=== PATIENT | female | born 1970 | race African-American/Black ===

== ENCOUNTER 2023-06-11 21:58 | Inpatient (IN) | payer OTHER ==
[~2023-06-11 21:58] MED LIST: Iopamidol-370 76% 500 ML MDV (1 ML CHARGE) ONE
[2023-06-11 22:20] LABS: #Eosinphils 0.1 thou/uL (0.0-0.7); #Monocytes 0.5 thou/uL (0.11-0.59); #Neutrophils 2.3 thou/uL (1.40-6.50); %Basophils 0.6 % (0.0-1.0); %Monocytes 9.1 % (0.0-10.0); %Neutrophils 42.9 % (42.0-75.0); Hematocrit 38.6 % (36.0-47.0); Hemoglobin 13.3 g/dL (12.0-16.0); Mean Corpuscular HGB CONC 34.5 g/dL (32.0-36.0); Mean Corpuscular Hemoglobin 31.8 pg (27.0-31.0); Mean Corpuscular Volume 92.3 fl (78.0-98.0); Mean Platelet Volume 10.1 fL (7.4-10.4); Platelet Count 309 10x3/uL (130-400); RBC Distribution Width 12.4 % (11.5-14.5); Red Blood Cell (RBC) Count 4.18 mill/uL (4.20-5.40); White Blood Cell (WBC) Count 5.4 10x3/uL (4.8-10.8)
[2023-06-11 22:41] LABS: ALT (SGPT) 13 U/L (8-55); AST (SGOT) 17 U/L (5-34); Albumin 4.5 g/dL (3.5-5.0); Alkaline Phosphatase 91 U/L (40-110); Anion Gap 17 mmol/L (10-20); BUN (Urea Nitrogen) 10 mg/dL (9.8-20.1); Bilirubin, Total Less than 0.2 mg/dL (0.2-1.2); CK (CPK) 334 U/L (29-168); Calc. Creatinine Clearance 0 mL/min (70-130); Calcium 9.3 mg/dL (7.8-10.44); Carbon Dioxide 23 mmol/L (22-29); Chloride 105 mmol/L (98-107); Estimated GFR 79; Globulin 3.1 g/dL (2.4-3.5); Glucose 138 mg/dL (70-105); Potassium 3.5 mmol/L (3.5-5.1); Protein, Total 7.6 g/dL (6.0-8.3); Sodium 141 mmol/L (136-145)
[2023-06-11 22:45] LABS: Troponin I Less than 0.010 ng/mL (< 0.028)
[2023-06-11 22:49] LABS: Prothrombin Time 13.7 sec (12.0-14.7)
[2023-06-12] MEDS ORDERED: Aspirin Chewable 81 MG TAB ONE (00:32)
[2023-06-12] MEDS ORDERED: Dextrose 50% Abboject 50 ML SYRINGE SLOW IVP PRN (00:59)
[2023-06-12] MEDS ORDERED: Dextrose 5% in Water 1,000 ML IV PRN (00:59)
[2023-06-12] MEDS ORDERED: Glucagon 1 MG/ML KIT IM PRN (00:59)
[2023-06-12] MEDS ORDERED: Ondansetron PF 4 MG/2 ML Vial IVP PRN (01:02)
[2023-06-12] MEDS ORDERED: Acetaminophen 325 MG TAB PO PRN (01:02)
[2023-06-12] MEDS ORDERED: Ondansetron ODT 4 MG TAB PO PRN (01:02)
[2023-06-12] MEDS ORDERED: Acetaminophen 650 MG Suppository PR PRN (01:02)
[2023-06-12] MEDS ORDERED: Naloxone HCl 0.4 mg/ml Vial IV SCH (01:15)
[2023-06-12] MEDS ORDERED: Promethazine HCl 12.5 MG in Sodium Chloride 0.9% 50 ML IVPB PRN (01:37)
[2023-06-12 02:06] VITALS: BMI 38.5
[2023-06-12] MEDS: Lactated Ringer's 1,000 ML IV SCH ×2 (02:23→10:13)
[2023-06-12 02:31] LABS: #Eosinphils 0.1 thou/uL (0.0-0.7); #Monocytes 0.4 thou/uL (0.11-0.59); #Neutrophils 2.1 thou/uL (1.40-6.50); %Basophils 0.6 % (0.0-1.0); %Lymphocytes 46.9 % (21.0-51.0); %Monocytes 8.1 % (0.0-10.0); Hematocrit 40.1 % (36.0-47.0); Hemoglobin 13.6 g/dL (12.0-16.0); Mean Corpuscular HGB CONC 33.9 g/dL (32.0-36.0); Mean Corpuscular Hemoglobin 31.6 pg (27.0-31.0); Mean Platelet Volume 10.2 fL (7.4-10.4); Platelet Count 277 10x3/uL (130-400); RBC Distribution Width 12.5 % (11.5-14.5); Red Blood Cell (RBC) Count 4.31 mill/uL (4.20-5.40); White Blood Cell (WBC) Count 4.9 10x3/uL (4.8-10.8)
[2023-06-12 03:02] LABS: Acetaminophen Less than 10 mcg/mL (10.0-30.0); Alcohol Less than 10.0 mg/dL (Less than 10); Salicylate Less than 8.0 mg/dL (15.0-30.0)
[2023-06-12 03:16] LABS: Anion Gap 15 mmol/L (10-20); BUN (Urea Nitrogen) 13 mg/dL (9.8-20.1); Calc. Creatinine Clearance 109 mL/min (70-130); Carbon Dioxide 25 mmol/L (22-29); Chloride 107 mmol/L (98-107); Estimated GFR 82; Glucose 99 mg/dL (70-105); Potassium 3.8 mmol/L (3.5-5.1); Sodium 143 mmol/L (136-145)
[2023-06-12 04:15] LABS: Dilantin 2.9 ug/mL (10.0-20.0)
[2023-06-12 06:41] LABS: Hemoglobin A1c 5.9 % (4.0-6.0)
[2023-06-12] MEDS ORDERED: Phenytoin Extended Release 100 MG CAP PO SCH (09:00)
[2023-06-12] MEDS: Losartan 25 MG TAB PO SCH (10:04)
[2023-06-12] MEDS: metFORMIN 500 MG TAB PO SCH ×2 (10:05→17:22)
[2023-06-12] MEDS: Famotidine 20 MG TAB PO SCH ×2 (10:07→21:23)
[2023-06-12] MEDS: Aspirin Chewable 81 MG TAB PO SCH (10:08)
[2023-06-12 11:19] LABS: Amphetamine Not Detected (NotDetected); Bacteria/HPF None Seen HPF (None Seen); Barbiturates Screen Detected (NotDetected); Benzodiazepine Screen Not Detected (NotDetected); Bilirubin Negative (Negative); Blood, Urine Negative (Negative); CAUTI Indications for Culture Alt mental st,lethar; Clarity Clear (Clear); Cocaine Metabolite Screen Detected (NotDetected); Glucose, Urine (Dipstick) Normal (Negative); Ketone, Urine Negative (Negative); Leukocyte Negative Leu/uL (Negative); Methadone Not Detected (NotDetected); Methamphetamine Not Detected (NotDetected); Nitrite Negative (Negative); Opiate Screen Not Detected (NotDetected); Oxycodone Screen Not Detected (NotDetected); Phencyclidine (PCP) Not Detected (NotDetected); Protein, Urine (Dipstick) Negative (Neg-Trace); RBC/HPF 0-3 HPF (0-3); Squamous Epithelial 0-3 HPF (0-3); THC/Cannabinoid Screen Not Detected (NotDetected); Tricyclic Screen Detected (NotDetected); Urobilinogen Normal mg/dL (Less than 2); WBC/HPF 0-3 HPF (0-3)
[2023-06-12 11:21] LABS: Specific Gravity, Urine 1.044 (1.002-1.036)
[2023-06-12 11:22] LABS: Urine Culture Reflex No No
[2023-06-12] MEDS ORDERED: Fosphenytoin Sodium 100 MG in Sodium Chloride 0.9% 50 ML IVPB SCH (12:00)
[2023-06-12] MEDS ORDERED: Magnevist 469MG/ML 20 ML VIAL ONE (14:22)
[2023-06-12] MEDS: Atorvastatin Calcium 40 MG TAB PO SCH (21:23)
[2023-06-12] MEDS: Fosphenytoin Sodium 100 MG in Sodium Chloride 0.9% 50 ML IVPB SCH (21:23)
[2023-06-13 04:58] LABS: #Eosinphils 0.1 thou/uL (0.0-0.7); #Monocytes 0.4 thou/uL (0.11-0.59); %Basophils 0.5 % (0.0-1.0); %Eosinophils 1.7 % (0.0-10.0); %Lymphocytes 38.4 % (21.0-51.0); %Monocytes 7.7 % (0.0-10.0); %Neutrophils 51.4 % (42.0-75.0); Hematocrit 38.9 % (36.0-47.0); Mean Corpuscular HGB CONC 33.4 g/dL (32.0-36.0); Mean Corpuscular Hemoglobin 31.3 pg (27.0-31.0); Mean Corpuscular Volume 93.7 fl (78.0-98.0); Mean Platelet Volume 10.4 fL (7.4-10.4); Platelet Count 298 10x3/uL (130-400); RBC Distribution Width 12.5 % (11.5-14.5); Red Blood Cell (RBC) Count 4.15 mill/uL (4.20-5.40); White Blood Cell (WBC) Count 5.8 10x3/uL (4.8-10.8)
[2023-06-13 05:21] LABS: Anion Gap 12 mmol/L (10-20); BUN (Urea Nitrogen) 14 mg/dL (9.8-20.1); Calc. Creatinine Clearance 126 mL/min (70-130); Calcium 9.3 mg/dL (7.8-10.44); Carbon Dioxide 26 mmol/L (22-29); Chloride 106 mmol/L (98-107); Estimated GFR 97; Glucose 106 mg/dL (70-105); Potassium 3.8 mmol/L (3.5-5.1); Sodium 140 mmol/L (136-145)
[2023-06-13] MEDS ORDERED: Losartan 25 MG TAB PO SCH (09:00)
[2023-06-13] MEDS: metFORMIN 500 MG TAB PO SCH ×2 (09:27→16:57)
[2023-06-13] MEDS: Aspirin Chewable 81 MG TAB PO SCH (09:27)
[2023-06-13] MEDS: Famotidine 20 MG TAB PO SCH ×2 (09:27→21:05)
[2023-06-13] MEDS: Losartan 25 MG TAB PO SCH (09:27)
[2023-06-13] MEDS: Fosphenytoin Sodium 100 MG in Sodium Chloride 0.9% 50 ML IVPB SCH (09:29)
[2023-06-13 13:22] LABS: Syphilis Antibody Index 16.15 S/CO (<1.00 Non-Reactive)
[2023-06-13 14:03] LABS: Syphilis Antibody INDETERMINATE (Nonreactive)
[2023-06-13] MEDS: Phenytoin 50 MG Chewable Tablet PO SCH ×2 (15:49→21:05)
[2023-06-13] MEDS: Atorvastatin Calcium 40 MG TAB PO SCH (21:05)
[2023-06-14 05:15] LABS: #Eosinphils 0.1 thou/uL (0.0-0.7); #Monocytes 0.5 thou/uL (0.11-0.59); #Neutrophils 3.2 thou/uL (1.40-6.50); %Basophils 0.5 % (0.0-1.0); %Eosinophils 1.9 % (0.0-10.0); %Lymphocytes 38.5 % (21.0-51.0); %Monocytes 8.3 % (0.0-10.0); %Neutrophils 50.5 % (42.0-75.0); Hematocrit 42.1 % (36.0-47.0); Hemoglobin 14.1 g/dL (12.0-16.0); Mean Corpuscular HGB CONC 33.5 g/dL (32.0-36.0); Mean Corpuscular Hemoglobin 31.5 pg (27.0-31.0); Mean Platelet Volume 10.6 fL (7.4-10.4); Platelet Count 317 10x3/uL (130-400); RBC Distribution Width 12.5 % (11.5-14.5); Red Blood Cell (RBC) Count 4.48 mill/uL (4.20-5.40); White Blood Cell (WBC) Count 6.4 10x3/uL (4.8-10.8)
[2023-06-14 06:45] LABS: Anion Gap 14 mmol/L (10-20); BUN (Urea Nitrogen) 13 mg/dL (9.8-20.1); Calc. Creatinine Clearance 139 mL/min (70-130); Calcium 9.8 mg/dL (7.8-10.44); Carbon Dioxide 26 mmol/L (22-29); Chloride 103 mmol/L (98-107); Estimated GFR 105; Glucose 91 mg/dL (70-105); Potassium 3.7 mmol/L (3.5-5.1); Sodium 139 mmol/L (136-145)
[2023-06-14] MEDS ORDERED: Losartan 25 MG TAB PO SCH (09:00)
[2023-06-14] MEDS ORDERED: Venlafaxine HCl XR 75 MG CAP PO SCH (09:00)
[2023-06-14] MEDS: Aspirin Chewable 81 MG TAB PO SCH (09:27)
[2023-06-14] MEDS: metFORMIN 500 MG TAB PO SCH (09:27)
[2023-06-14] MEDS: Famotidine 20 MG TAB PO SCH (09:27)
[2023-06-14] MEDS: Phenytoin 50 MG Chewable Tablet PO SCH (09:27)
[2023-06-14] MEDS ORDERED: Clopidogrel Bisulfate 300 MG TAB PO SCH (12:15)
[2023-06-14 12:19] VITALS: BP 146/79; TEMP 98
== END 2023-06-14 14:00 | disposition home or self-care (01) | DRG 69 ==
LOC: ERS 21:58 → 2SE 23:48 → OBSVTOIN 06-13 12:52
PROVIDERS: ADMIT Student in an Organized Health Care Education/Training Program; ATTEND Student in an Organized Health Care Education/Training Program
DX: G45.9 Transient cerebral ischemic attack, unspecified (principal); G92.8 Other toxic encephalopathy; I10 Essential (primary) hypertension; E78.5 Hyperlipidemia, unspecified; R56.9 Unspecified convulsions; F19.10 Other psychoactive substance abuse, uncomplicated; G30.9 Alzheimer's disease, unspecified; F02.80 Dementia in other diseases classified elsewhere, unspecified severity, without behavioral disturbance, psychotic disturbance, mood disturbance, and anxiety; E11.42 Type 2 diabetes mellitus with diabetic polyneuropathy; J44.9 Chronic obstructive pulmonary disease, unspecified; K21.9 Gastro-esophageal reflux disease without esophagitis; M06.9 Rheumatoid arthritis, unspecified; T40.5X5A Adverse effect of cocaine, initial encounter; F20.9 Schizophrenia, unspecified; R29.898 Other symptoms and signs involving the musculoskeletal system; Z98.891 History of uterine scar from previous surgery; Z88.8 Allergy status to other drugs, medicaments and biological substances; Z79.899 Other long term (current) drug therapy; Z79.82 Long term (current) use of aspirin; Z91.51 Personal history of suicidal behavior; Z80.1 Family history of malignant neoplasm of trachea, bronchus and lung
CPT/HCPCS: 36415; 36416; 70450; 70496; 70498; 70553; 71045; 80048; 80053; 80061; 80185; 80306; 80307; 81001; 82550; 82607; 83036; 84439; 84443; 84484; 85025; 85610; 85730; 86593; 86780; 93005; 96372; 96374; 96375; 96376; A9579; G0378; J1650; J2310; J7120; Q2009; Q9967

== ENCOUNTER 2023-06-30 10:01 | Emergency (ER) | payer OTHER ==
[2023-06-30] MEDS ORDERED: Morphine 4 MG/ML VIAL ONE (11:10)
[2023-06-30 11:37] LABS: #Eosinphils 0.2 thou/uL (0.0-0.7); #Monocytes 0.8 thou/uL (0.11-0.59); #Neutrophils 4.5 thou/uL (1.40-6.50); %Basophils 0.4 % (0.0-1.0); %Neutrophils 60.3 % (42.0-75.0); Hematocrit 38.6 % (36.0-47.0); Hemoglobin 13.1 g/dL (12.0-16.0); Mean Corpuscular HGB CONC 33.9 g/dL (32.0-36.0); Mean Corpuscular Hemoglobin 31.6 pg (27.0-31.0); Mean Corpuscular Volume 93.2 fl (78.0-98.0); Mean Platelet Volume 9.9 fL (7.4-10.4); Platelet Count 337 10x3/uL (130-400); RBC Distribution Width 13.1 % (11.5-14.5); Red Blood Cell (RBC) Count 4.14 mill/uL (4.20-5.40); White Blood Cell (WBC) Count 7.5 10x3/uL (4.8-10.8)
[2023-06-30 11:54] LABS: PTT 28.6 sec (22.9-36.1)
[2023-06-30 12:00] LABS: ALT (SGPT) 16 U/L (8-55); AST (SGOT) 19 U/L (5-34); Albumin 4.4 g/dL (3.5-5.0); Alcohol Less than 10.0 mg/dL (Less than 10); Alkaline Phosphatase 94 U/L (40-110); Anion Gap 16 mmol/L (10-20); BUN (Urea Nitrogen) 16 mg/dL (9.8-20.1); Bilirubin, Total 0.4 mg/dL (0.2-1.2); CK (CPK) 315 U/L (29-168); Calc. Creatinine Clearance 0 mL/min (70-130); Calcium 9.5 mg/dL (7.8-10.44); Carbon Dioxide 22 mmol/L (22-29); Chloride 107 mmol/L (98-107); Estimated GFR 91; Globulin 3.2 g/dL (2.4-3.5); Glucose 101 mg/dL (70-105); Lipase 26 U/L (8-78); Protein, Total 7.6 g/dL (6.0-8.3); Sodium 141 mmol/L (136-145)
[2023-06-30] MEDS ORDERED: Iopamidol-370 76% 500 ML MDV (1 ML CHARGE) ONE (13:09)
== END 2023-06-30 15:50 | disposition home or self-care (01) ==
LOC: ERS 10:01
DX: M25.511 Pain in right shoulder (principal); I10 Essential (primary) hypertension; E11.42 Type 2 diabetes mellitus with diabetic polyneuropathy; K21.9 Gastro-esophageal reflux disease without esophagitis; E78.5 Hyperlipidemia, unspecified; M06.9 Rheumatoid arthritis, unspecified; G40.409 Other generalized epilepsy and epileptic syndromes, not intractable, without status epilepticus; J44.9 Chronic obstructive pulmonary disease, unspecified; W06.XXXA Fall from bed, initial encounter; Y93.89 Activity, other specified; Y92.003 Bedroom of unspecified non-institutional (private) residence as the place of occurrence of the external cause; Z86.73 Personal history of transient ischemic attack (TIA), and cerebral infarction without residual deficits; Z79.84 Long term (current) use of oral hypoglycemic drugs; Z79.899 Other long term (current) drug therapy
CPT/HCPCS: 36415; 70450; 71260; 72125; 74177; 80053; 80307; 82550; 83605; 83690; 85025; 85610; 85730; 93005; 96374; J2270

== ENCOUNTER 2023-08-03 22:22 | Emergency (ER) | payer OTHER ==
[2023-08-03 23:12] LABS: #Eosinphils 0.1 thou/uL (0.0-0.7); #Monocytes 0.9 thou/uL (0.11-0.59); #Neutrophils 3.4 thou/uL (1.40-6.50); %Basophils 0.3 % (0.0-1.0); %Lymphocytes 36.2 % (21.0-51.0); %Monocytes 12.5 % (0.0-10.0); %Neutrophils 49.6 % (42.0-75.0); Hematocrit 37.8 % (36.0-47.0); Hemoglobin 12.8 g/dL (12.0-16.0); Mean Corpuscular HGB CONC 33.9 g/dL (32.0-36.0); Mean Corpuscular Hemoglobin 32.1 pg (27.0-31.0); Mean Corpuscular Volume 94.7 fl (78.0-98.0); Mean Platelet Volume 9.7 fL (7.4-10.4); Platelet Count 409 10x3/uL (130-400); RBC Distribution Width 13.6 % (11.5-14.5); Red Blood Cell (RBC) Count 3.99 mill/uL (4.20-5.40); White Blood Cell (WBC) Count 6.9 10x3/uL (4.8-10.8)
[2023-08-03 23:27] LABS: Acetaminophen Less than 10 mcg/mL (10.0-30.0); Alcohol Less than 10.0 mg/dL (Less than 10); Salicylate Less than 8.0 mg/dL (15.0-30.0)
[2023-08-03 23:29] LABS: ALT (SGPT) 11 U/L (8-55); AST (SGOT) 14 U/L (5-34); Albumin 3.9 g/dL (3.5-5.0); Alkaline Phosphatase 88 U/L (40-110); Anion Gap 15 mmol/L (10-20); BUN (Urea Nitrogen) 14 mg/dL (9.8-20.1); Bilirubin, Total 0.2 mg/dL (0.2-1.2); Calc. Creatinine Clearance 0 mL/min (70-130); Calcium 8.9 mg/dL (7.8-10.44); Carbon Dioxide 22 mmol/L (22-29); Chloride 109 mmol/L (98-107); Estimated GFR 101; Globulin 3.2 g/dL (2.4-3.5); Glucose 97 mg/dL (70-105); Potassium 3.5 mmol/L (3.5-5.1); Protein, Total 7.1 g/dL (6.0-8.3); Sodium 142 mmol/L (136-145)
[2023-08-03] MEDS ORDERED: Acetaminophen 325 MG TAB ONE (23:54)
[2023-08-03] MEDS ORDERED: Phenytoin Extended Release 100 MG CAP ONE (23:55)
[2023-08-04 00:05] LABS: SARS-CoV-2 NAA Rapid Test Not Detected (NotDetected)
[2023-08-04] MEDS ORDERED: Dextromethorphan 30 MG/5 ML (89 ML BOTTLE) PO SCH (00:15)
[2023-08-04 00:31] LABS: Amphetamine Not Detected (NotDetected); Barbiturates Screen Not Detected (NotDetected); Benzodiazepine Screen Not Detected (NotDetected); Cocaine Metabolite Screen Detected (NotDetected); Methadone Not Detected (NotDetected); Methamphetamine Not Detected (NotDetected); Opiate Screen Not Detected (NotDetected); Oxycodone Screen Not Detected (NotDetected); Phencyclidine (PCP) Not Detected (NotDetected); THC/Cannabinoid Screen Detected (NotDetected); Tricyclic Screen Not Detected (NotDetected)
== END 2023-08-04 01:30 | disposition home or self-care (01) ==
LOC: ERS 22:22
DX: J01.80 Other acute sinusitis (principal); R56.9 Unspecified convulsions; I10 Essential (primary) hypertension; E11.9 Type 2 diabetes mellitus without complications; K21.9 Gastro-esophageal reflux disease without esophagitis; E78.5 Hyperlipidemia, unspecified; Z79.84 Long term (current) use of oral hypoglycemic drugs; Z79.899 Other long term (current) drug therapy; Z20.822 Contact with and (suspected) exposure to COVID-19
CPT/HCPCS: 36415; 70450; 71045; 80053; 80306; 80307; 85025; 93005; Q2009

== ENCOUNTER 2023-08-15 02:21 | Inpatient (IN) | payer OTHER ==
[2023-08-15 02:56] LABS: #Eosinphils 0.1 thou/uL (0.0-0.7); #Monocytes 0.5 thou/uL (0.11-0.59); #Neutrophils 5.1 thou/uL (1.40-6.50); %Basophils 0.4 % (0.0-1.0); %Eosinophils 1.1 % (0.0-10.0); %Lymphocytes 29.2 % (21.0-51.0); %Monocytes 5.9 % (0.0-10.0); Hematocrit 41.7 % (36.0-47.0); Hemoglobin 14.3 g/dL (12.0-16.0); Mean Corpuscular HGB CONC 34.3 g/dL (32.0-36.0); Mean Corpuscular Hemoglobin 31.8 pg (27.0-31.0); Mean Corpuscular Volume 92.9 fl (78.0-98.0); Mean Platelet Volume 10.5 fL (7.4-10.4); Platelet Count 394 10x3/uL (130-400); RBC Distribution Width 14.1 % (11.5-14.5); Red Blood Cell (RBC) Count 4.49 mill/uL (4.20-5.40); White Blood Cell (WBC) Count 8.1 10x3/uL (4.8-10.8)
[2023-08-15 03:24] LABS: PTT 37.3 sec (22.9-36.1); Prothrombin Time 13.1 sec (12.0-14.7)
[2023-08-15 03:45] LABS: Troponin I Less than 0.010 ng/mL (< 0.028)
[2023-08-15 04:13] LABS: Chloride 107 mmol/L (98-107); Potassium 4.4 mmol/L (3.5-5.1); Sodium 138 mmol/L (136-145)
[2023-08-15 04:14] LABS: Calcium 9.8 mg/dL (7.8-10.44); Glucose 98 mg/dL (70-105)
[2023-08-15 04:15] LABS: Globulin 4.3 g/dL (2.4-3.5); Protein, Total 8.3 g/dL (6.0-8.3)
[2023-08-15 04:16] LABS: Anion Gap 23 mmol/L (10-20); Bilirubin, Total 0.3 mg/dL (0.2-1.2); Carbon Dioxide 12 mmol/L (22-29)
[2023-08-15 04:17] LABS: Alkaline Phosphatase 82 U/L (40-110)
[2023-08-15 04:18] LABS: BUN (Urea Nitrogen) 10 mg/dL (9.8-20.1); Calc. Creatinine Clearance 0 mL/min (70-130); Estimated GFR 102
[2023-08-15 04:20] LABS: ALT (SGPT) 13 U/L (8-55); AST (SGOT) 22 U/L (5-34); Magnesium 2.1 mg/dL (1.6-2.6)
[2023-08-15 04:47] LABS: Acetaminophen Less than 10 mcg/mL (10.0-30.0); Alcohol 18.8 mg/dL (Less than 10); Salicylate Less than 8.0 mg/dL (15.0-30.0)
[2023-08-15 05:03] LABS: SARS-CoV-2 NAA Rapid Test Not Detected (NotDetected)
[2023-08-15 07:26] LABS: Troponin I Less than 0.010 ng/mL (< 0.028)
[2023-08-15] MEDS ORDERED: Glucagon 1 MG/ML KIT IM PRN (08:11)
[2023-08-15] MEDS ORDERED: Dextrose 50% Abboject 50 ML SYRINGE SLOW IVP PRN (08:11)
[2023-08-15] MEDS ORDERED: Dextrose 5% in Water 1,000 ML IV PRN (08:11)
[2023-08-15] MEDS ORDERED: Acetaminophen 325 MG TAB PO PRN (08:12)
[2023-08-15] MEDS ORDERED: HumaLOG 300 UNITS/3 ML VIAL SC PRN ×2 (08:12)
[2023-08-15 08:15] VITALS: BMI 37.1
[2023-08-15] MEDS ORDERED: hydrALAZINE 20 MG/ML VIAL SLOW IVP PRN (08:39)
[2023-08-15] MEDS ORDERED: Losartan 25 MG TAB PO SCH (08:45)
[2023-08-15] MEDS ORDERED: Ketorolac Tromethamine 30 MG/ML VIAL IVP SCH (08:45)
[2023-08-15] MEDS ORDERED: Phenytoin Extended Release 100 MG CAP PO SCH (09:15)
[2023-08-15] MEDS ORDERED: Albuterol HFA (OR) 200 PUFF INH INH PRN (09:25)
[2023-08-15] MEDS: Lidocaine 4% Patch TD SCH (10:16)
[2023-08-15] MEDS ORDERED: Iopamidol-370 76% 500 ML MDV (1 ML CHARGE) ONE (10:46)
[2023-08-15 10:58] LABS: Hemoglobin A1c 6.1 % (4.0-6.0)
[2023-08-15 11:36] LABS: Thyroid Stimulating Hormone 0.3578 uIU/mL (0.35-4.94)
[2023-08-15] MEDS ORDERED: FLU VACC QS2023-24(6MOS UP)/PF 60 MCG/0.5 ML SYRINGE IM ONE (15:30)
[2023-08-15] MEDS ORDERED: Melatonin 3 MG TAB PO PRN (17:12)
[2023-08-15] MEDS: Gabapentin 300 MG CAP PO SCH ×2 (17:31→17:32)
[2023-08-15] MEDS: Phenytoin Extended Release 100 MG CAP PO SCH ×2 (17:33→20:05)
[2023-08-15] MEDS: metFORMIN 500 MG TAB PO SCH (17:34)
[2023-08-15] MEDS: Famotidine 20 MG TAB PO SCH (20:05)
[2023-08-15] MEDS ORDERED: Transdermal Patch Removal TOP SCH (21:00)
[2023-08-15] MEDS ORDERED: Atorvastatin Calcium 40 MG TAB PO SCH (21:00)
[2023-08-15] MEDS ORDERED: traZODone HCl 50 MG TAB PO SCH (21:00)
[2023-08-16 06:02] LABS: Hematocrit 43.3 % (36.0-47.0); Hemoglobin 14.4 g/dL (12.0-16.0); Mean Corpuscular HGB CONC 33.3 g/dL (32.0-36.0); Mean Corpuscular Hemoglobin 32.1 pg (27.0-31.0); Mean Corpuscular Volume 96.7 fl (78.0-98.0); Mean Platelet Volume 10.4 fL (7.4-10.4); Platelet Count 317 10x3/uL (130-400); RBC Distribution Width 14.6 % (11.5-14.5); Red Blood Cell (RBC) Count 4.48 mill/uL (4.20-5.40); White Blood Cell (WBC) Count 5.1 10x3/uL (4.8-10.8)
[2023-08-16 06:36] LABS: Anion Gap 12 mmol/L (10-20); BUN (Urea Nitrogen) 23 mg/dL (9.8-20.1); Calc. Creatinine Clearance 132 mL/min (70-130); Carbon Dioxide 21 mmol/L (22-29); Cardiac Risk 3.8 (Less than 4.5); Chloride 109 mmol/L (98-107); Cholesterol 188 mg/dl (< 200 Desired); Estimated GFR 105; Glucose 110 mg/dL (70-105); HDL Cholesterol 49 mg/dL (>60 Neg Risk); LDL Cholesterol, Calculated 116 mg/dL; Potassium 4.2 mmol/L (3.5-5.1); Sodium 138 mmol/L (136-145); Triglycerides 115 mg/dL (Less than 150)
[2023-08-16] MEDS ORDERED: Aspirin Chewable 81 MG TAB PO SCH (09:00)
[2023-08-16] MEDS ORDERED: Losartan 25 MG TAB PO SCH (09:00)
[2023-08-16] MEDS ORDERED: Clopidogrel Bisulfate 75 MG TAB PO SCH (09:00)
[2023-08-16] MEDS ORDERED: OLANZapine 5 MG TAB PO SCH ×2 (09:00→21:00)
[2023-08-16] MEDS ORDERED: Venlafaxine HCl XR 75 MG CAP PO SCH (09:00)
[2023-08-16] MEDS: Lidocaine 4% Patch TD SCH (09:11)
[2023-08-16] MEDS: Phenytoin Extended Release 100 MG CAP PO SCH ×2 (09:12→15:43)
[2023-08-16] MEDS: metFORMIN 500 MG TAB PO SCH (09:13)
[2023-08-16] MEDS: Gabapentin 300 MG CAP PO SCH ×2 (09:13→15:43)
[2023-08-16] MEDS: Famotidine 20 MG TAB PO SCH (09:13)
[2023-08-16 12:31] VITALS: BP 110/70; TEMP 98.1
== END 2023-08-16 16:16 | disposition home or self-care (01) | DRG 57 ==
LOC: ERS 02:21 → 2SW 08:03 → T4-B 21:52
PROVIDERS: ADMIT Family Medicine; ATTEND Family Medicine
PROC: 02H633Z Insertion of Infusion Device into Right Atrium, Percutaneous Approach (ICD-10-PCS; principal; 2023-08-15)
DX: I69.354 Hemiplegia and hemiparesis following cerebral infarction affecting left non-dominant side (principal); F10.90 Alcohol use, unspecified, uncomplicated; E11.40 Type 2 diabetes mellitus with diabetic neuropathy, unspecified; E78.5 Hyperlipidemia, unspecified; I11.0 Hypertensive heart disease with heart failure; R26.81 Unsteadiness on feet; M19.012 Primary osteoarthritis, left shoulder; R91.8 Other nonspecific abnormal finding of lung field; F19.10 Other psychoactive substance abuse, uncomplicated; F41.9 Anxiety disorder, unspecified; T14.91XD Suicide attempt, subsequent encounter; F31.9 Bipolar disorder, unspecified; F20.9 Schizophrenia, unspecified; Z79.82 Long term (current) use of aspirin; Z88.8 Allergy status to other drugs, medicaments and biological substances; Z79.899 Other long term (current) drug therapy; Z98.891 History of uterine scar from previous surgery; Z71.51 Drug abuse counseling and surveillance of drug abuser; Z82.49 Family history of ischemic heart disease and other diseases of the circulatory system; Z83.3 Family history of diabetes mellitus; Z80.1 Family history of malignant neoplasm of trachea, bronchus and lung; Z11.52 Encounter for screening for COVID-19
CPT/HCPCS: 36415; 36416; 70450; 70496; 70498; 71045; 80048; 80053; 80061; 80307; 82607; 83036; 83735; 83880; 84443; 84484; 85025; 85027; 85610; 85730; 93005; J1650; J1885; Q9967

== ENCOUNTER 2023-09-07 15:47 | Emergency (ER) | payer OTHER ==
[2023-09-07 16:44] LABS: #Basophils 0.1 thou/uL (0.0-0.2); #Eosinphils 0.1 thou/uL (0.0-0.7); #Monocytes 0.9 thou/uL (0.11-0.59); #Neutrophils 5.4 thou/uL (1.40-6.50); %Basophils 0.6 % (0.0-1.0); %Eosinophils 0.9 % (0.0-10.0); %Lymphocytes 28.6 % (21.0-51.0); %Monocytes 9.5 % (0.0-10.0); %Neutrophils 60.1 % (42.0-75.0); Hematocrit 44.1 % (36.0-47.0); Mean Corpuscular Hemoglobin 32.4 pg (27.0-31.0); Mean Corpuscular Volume 95.2 fl (78.0-98.0); Mean Platelet Volume 10.5 fL (7.4-10.4); Platelet Count 334 10x3/uL (130-400); RBC Distribution Width 14.3 % (11.5-14.5); Red Blood Cell (RBC) Count 4.63 mill/uL (4.20-5.40); White Blood Cell (WBC) Count 8.9 10x3/uL (4.8-10.8)
[2023-09-07 17:09] LABS: Chloride 108 mmol/L (98-107); Potassium 4.4 mmol/L (3.5-5.1); Sodium 138 mmol/L (136-145)
[2023-09-07 17:18] LABS: Alcohol Less than 10.0 mg/dL (Less than 10)
[2023-09-07 17:21] LABS: Acetaminophen Less than 10 mcg/mL (10.0-30.0); Salicylate Less than 8.0 mg/dL (15.0-30.0)
[2023-09-07 17:22] LABS: ALT (SGPT) 15 U/L (8-55); AST (SGOT) 27 U/L (5-34); Albumin 4.8 g/dL (3.5-5.0); Alkaline Phosphatase 94 U/L (40-110); Anion Gap 21 mmol/L (10-20); BUN (Urea Nitrogen) 17 mg/dL (9.8-20.1); Bilirubin, Total 0.4 mg/dL (0.2-1.2); Calc. Creatinine Clearance 0 mL/min (70-130); Calcium 9.3 mg/dL (7.8-10.44); Carbon Dioxide 14 mmol/L (22-29); Estimated GFR 88; Globulin 3.9 g/dL (2.4-3.5); Glucose 102 mg/dL (70-105); Protein, Total 8.7 g/dL (6.0-8.3)
[2023-09-07 17:26] LABS: Troponin I Less than 0.010 ng/mL (< 0.028)
[2023-09-07 18:11] LABS: Bacteria/HPF None Seen HPF (None Seen); Bilirubin Negative (Negative); Blood, Urine Negative (Negative); CAUTI Indications for Culture Alt mental st,lethar; Clarity Clear (Clear); Glucose, Urine (Dipstick) Normal (Negative); Ketone, Urine Negative (Negative); Leukocyte Negative Leu/uL (Negative); Nitrite Negative (Negative); Protein, Urine (Dipstick) 20 mg/dL (Neg-Trace); RBC/HPF 0-3 HPF (0-3); Specific Gravity, Urine 1.033 (1.002-1.036); Squamous Epithelial 0-3 HPF (0-3); WBC/HPF 0-3 HPF (0-3); pH, Urine 5.5 (5.0-9.0)
[2023-09-07 18:14] LABS: Urine Culture Reflex No No
[2023-09-07 18:23] LABS: Amphetamine Not Detected (NotDetected); Barbiturates Screen Detected (NotDetected); Benzodiazepine Screen Not Detected (NotDetected); Cocaine Metabolite Screen Detected (NotDetected); Methadone Not Detected (NotDetected); Methamphetamine Not Detected (NotDetected); Opiate Screen Not Detected (NotDetected); Oxycodone Screen Not Detected (NotDetected); Phencyclidine (PCP) Not Detected (NotDetected); THC/Cannabinoid Screen Detected (NotDetected); Tricyclic Screen Detected (NotDetected)
== END 2023-09-07 19:20 | disposition home or self-care (01) ==
LOC: ERS 15:47
DX: M54.50 Low back pain, unspecified (principal); E11.9 Type 2 diabetes mellitus without complications; K21.9 Gastro-esophageal reflux disease without esophagitis; E78.5 Hyperlipidemia, unspecified; E11.42 Type 2 diabetes mellitus with diabetic polyneuropathy; I10 Essential (primary) hypertension; J44.9 Chronic obstructive pulmonary disease, unspecified; Z79.84 Long term (current) use of oral hypoglycemic drugs; Z79.51 Long term (current) use of inhaled steroids; Z79.899 Other long term (current) drug therapy; W19.XXXA Unspecified fall, initial encounter
CPT/HCPCS: 36416; 51701; 72128; 72131; 80053; 80306; 80307; 81001; 83735; 84484; 85025; 93005; 94760

== ENCOUNTER 2023-09-14 19:34 | Inpatient (IN) | payer OTHER ==
[2023-09-14 20:22] LABS: #Eosinphils 0.1 thou/uL (0.0-0.7); #Monocytes 0.6 thou/uL (0.11-0.59); #Neutrophils 4.2 thou/uL (1.40-6.50); %Basophils 0.4 % (0.0-1.0); %Eosinophils 1.7 % (0.0-10.0); %Lymphocytes 30.1 % (21.0-51.0); %Monocytes 8.2 % (0.0-10.0); %Neutrophils 59.2 % (42.0-75.0); Hematocrit 37.6 % (36.0-47.0); Hemoglobin 12.8 g/dL (12.0-16.0); Mean Corpuscular Hemoglobin 32.3 pg (27.0-31.0); Mean Corpuscular Volume 94.9 fl (78.0-98.0); Platelet Count 353 10x3/uL (130-400); RBC Distribution Width 13.7 % (11.5-14.5); Red Blood Cell (RBC) Count 3.96 mill/uL (4.20-5.40); White Blood Cell (WBC) Count 7.1 10x3/uL (4.8-10.8)
[2023-09-14 20:36] LABS: PTT 27.8 sec (22.9-36.1); Prothrombin Time 13.5 sec (12.0-14.7)
[2023-09-14 20:42] LABS: Troponin I Less than 0.010 ng/mL (< 0.028)
[2023-09-14 20:48] LABS: ALT (SGPT) 11 U/L (8-55); AST (SGOT) 15 U/L (5-34); Albumin 4.2 g/dL (3.5-5.0); Alkaline Phosphatase 83 U/L (40-110); Anion Gap 14 mmol/L (10-20); BUN (Urea Nitrogen) 17 mg/dL (9.8-20.1); Bilirubin, Total 0.3 mg/dL (0.2-1.2); Calc. Creatinine Clearance 0 mL/min (70-130); Calcium 9.6 mg/dL (7.8-10.44); Carbon Dioxide 25 mmol/L (22-29); Chloride 105 mmol/L (98-107); Estimated GFR 88; Globulin 3.5 g/dL (2.4-3.5); Glucose 136 mg/dL (70-105); Potassium 3.2 mmol/L (3.5-5.1); Protein, Total 7.7 g/dL (6.0-8.3); Sodium 141 mmol/L (136-145)
[2023-09-14 20:49] LABS: Acetaminophen Less than 10 mcg/mL (10.0-30.0); Alcohol Less than 10.0 mg/dL (Less than 10); Lipase 41 U/L (8-78); Salicylate Less than 8.0 mg/dL (15.0-30.0)
[2023-09-14] MEDS ORDERED: Aspirin Chewable 81 MG TAB ONE (21:18)
[2023-09-14 21:39] LABS: Bacteria/HPF None Seen HPF (None Seen); Bilirubin Negative (Negative); Blood, Urine Negative (Negative); CAUTI Indications for Culture Alt mental st,lethar; Clarity Clear (Clear); Glucose, Urine (Dipstick) Normal (Negative); Ketone, Urine Negative (Negative); Leukocyte Negative Leu/uL (Negative); Nitrite Negative (Negative); Protein, Urine (Dipstick) Negative (Neg-Trace); RBC/HPF 0-3 HPF (0-3); Specific Gravity, Urine 1.045 (1.002-1.036); Squamous Epithelial 0-3 HPF (0-3); Urobilinogen Normal mg/dL (Less than 2); WBC/HPF 0-3 HPF (0-3); pH, Urine 6.5 (5.0-9.0)
[2023-09-14 21:41] LABS: Amphetamine Not Detected (NotDetected); Barbiturates Screen Detected (NotDetected); Benzodiazepine Screen Not Detected (NotDetected); Cocaine Metabolite Screen Detected (NotDetected); Methadone Not Detected (NotDetected); Methamphetamine Not Detected (NotDetected); Opiate Screen Not Detected (NotDetected); Oxycodone Screen Not Detected (NotDetected); Phencyclidine (PCP) Not Detected (NotDetected); THC/Cannabinoid Screen Not Detected (NotDetected); Tricyclic Screen Not Detected (NotDetected)
[2023-09-14 21:43] LABS: Urine Culture Reflex No No
[2023-09-14] MEDS ORDERED: Dextrose 50% Abboject 50 ML SYRINGE SLOW IVP PRN (22:11)
[2023-09-14] MEDS ORDERED: Acetaminophen 325 MG TAB PO PRN (22:11)
[2023-09-14] MEDS ORDERED: Ondansetron ODT 4 MG TAB PO PRN (22:11)
[2023-09-14] MEDS ORDERED: Dextrose 5% in Water 1,000 ML IV PRN (22:11)
[2023-09-14] MEDS ORDERED: Glucagon 1 MG/ML KIT IM PRN (22:11)
[2023-09-14] MEDS ORDERED: HumaLOG 300 UNITS/3 ML VIAL SC PRN ×2 (22:15)
[2023-09-14] MEDS ORDERED: Nicotine 14 MG PATCH ONE (23:11)
[2023-09-14] MEDS: Nicotine 14 MG PATCH TD SCH (23:50)
[2023-09-15] MEDS ORDERED: Albuterol 200 PUFF (6.7GM INHALER) INH PRN (01:00)
[2023-09-15] MEDS ORDERED: Potassium Chloride 20 MEQ TAB PO SCH (01:30)
[2023-09-15 01:55] LABS: Cardiac Risk 3.1 (Less than 4.5)
[2023-09-15] MEDS ORDERED: Potassium Chloride 20 MEQ TAB ONE (03:03)
[2023-09-15 04:02] LABS: #Eosinphils 0.1 thou/uL (0.0-0.7); #Monocytes 0.6 thou/uL (0.11-0.59); #Neutrophils 2.9 thou/uL (1.40-6.50); %Basophils 0.3 % (0.0-1.0); %Eosinophils 1.9 % (0.0-10.0); %Monocytes 9.8 % (0.0-10.0); %Neutrophils 49.7 % (42.0-75.0); Hematocrit 38.6 % (36.0-47.0); Mean Corpuscular HGB CONC 33.7 g/dL (32.0-36.0); Mean Corpuscular Hemoglobin 31.9 pg (27.0-31.0); Mean Corpuscular Volume 94.6 fl (78.0-98.0); Mean Platelet Volume 10.1 fL (7.4-10.4); Platelet Count 318 10x3/uL (130-400); RBC Distribution Width 13.7 % (11.5-14.5); Red Blood Cell (RBC) Count 4.08 mill/uL (4.20-5.40); White Blood Cell (WBC) Count 5.8 10x3/uL (4.8-10.8)
[2023-09-15 04:57] LABS: ALT (SGPT) 8 U/L (8-55); AST (SGOT) 13 U/L (5-34); Albumin 3.8 g/dL (3.5-5.0); Alkaline Phosphatase 75 U/L (40-110); Anion Gap 12 mmol/L (10-20); BUN (Urea Nitrogen) 18 mg/dL (9.8-20.1); Bilirubin, Total 0.3 mg/dL (0.2-1.2); Calc. Creatinine Clearance 119 mL/min (70-130); Calcium 9.1 mg/dL (7.8-10.44); Carbon Dioxide 25 mmol/L (22-29); Chloride 107 mmol/L (98-107); Estimated GFR 95; Glucose 97 mg/dL (70-105); Potassium 3.6 mmol/L (3.5-5.1); Protein, Total 6.8 g/dL (6.0-8.3); Sodium 140 mmol/L (136-145)
[2023-09-15] MEDS ORDERED: Aspirin Chewable 81 MG TAB ONE (08:53)
[2023-09-15] MEDS ORDERED: Famotidine 20 MG TAB ONE (08:53)
[2023-09-15] MEDS ORDERED: Clopidogrel Bisulfate 75 MG TAB ONE (08:53)
[2023-09-15] MEDS ORDERED: Phenytoin Extended Release 100 MG CAP ONE (08:53)
[2023-09-15] MEDS ORDERED: Gabapentin 300 MG CAP ONE (08:53)
[2023-09-15] MEDS ORDERED: Enoxaparin 40 MG (0.4 mL) SYRINGE ONE (08:54)
[2023-09-15] MEDS: Enoxaparin 40 MG (0.4 mL) SYRINGE SC SCH (09:18)
[2023-09-15] MEDS: Famotidine 20 MG TAB PO SCH ×2 (09:19→20:58)
[2023-09-15] MEDS: Aspirin Chewable 81 MG TAB PO SCH (09:19)
[2023-09-15] MEDS: Gabapentin 300 MG CAP PO SCH ×3 (09:19→20:57)
[2023-09-15] MEDS: Clopidogrel Bisulfate 75 MG TAB PO SCH (09:19)
[2023-09-15] MEDS: Phenytoin Extended Release 100 MG CAP PO SCH ×3 (09:20→20:57)
[2023-09-15] MEDS: metFORMIN 500 MG TAB PO SCH ×2 (09:44→17:33)
[2023-09-15] MEDS: Venlafaxine HCl XR 75 MG CAP PO SCH (09:44)
[2023-09-15 16:52] VITALS: BMI 34.9
[2023-09-15] MEDS: traZODone HCl 50 MG TAB PO SCH (20:57)
[2023-09-15] MEDS: Nicotine 14 MG PATCH TD SCH (20:57)
[2023-09-15] MEDS: OLANZapine 5 MG TAB PO SCH (20:58)
[2023-09-15] MEDS: Atorvastatin Calcium 40 MG TAB PO SCH (20:58)
[2023-09-16] MEDS: Enoxaparin 40 MG (0.4 mL) SYRINGE SC SCH (08:27)
[2023-09-16] MEDS: Famotidine 20 MG TAB PO SCH ×2 (08:27→21:34)
[2023-09-16] MEDS: Phenytoin Extended Release 100 MG CAP PO SCH ×3 (08:28→21:34)
[2023-09-16] MEDS: metFORMIN 500 MG TAB PO SCH ×2 (08:28→16:50)
[2023-09-16] MEDS: Clopidogrel Bisulfate 75 MG TAB PO SCH (08:28)
[2023-09-16] MEDS: Venlafaxine HCl XR 75 MG CAP PO SCH (08:28)
[2023-09-16] MEDS: Gabapentin 300 MG CAP PO SCH ×3 (08:28→21:34)
[2023-09-16] MEDS: Aspirin Chewable 81 MG TAB PO SCH (08:28)
[2023-09-16 11:23] LABS: #Eosinphils 0.1 thou/uL (0.0-0.7); #Monocytes 0.4 thou/uL (0.11-0.59); #Neutrophils 2.8 thou/uL (1.40-6.50); %Basophils 0.4 % (0.0-1.0); %Eosinophils 2.3 % (0.0-10.0); %Lymphocytes 29.7 % (21.0-51.0); %Monocytes 9.1 % (0.0-10.0); %Neutrophils 58.1 % (42.0-75.0); Hematocrit 39.5 % (36.0-47.0); Hemoglobin 13.2 g/dL (12.0-16.0); Mean Corpuscular HGB CONC 33.4 g/dL (32.0-36.0); Mean Corpuscular Hemoglobin 32.4 pg (27.0-31.0); Mean Corpuscular Volume 96.8 fl (78.0-98.0); Mean Platelet Volume 10.2 fL (7.4-10.4); Platelet Count 326 10x3/uL (130-400); RBC Distribution Width 13.7 % (11.5-14.5); Red Blood Cell (RBC) Count 4.08 mill/uL (4.20-5.40); White Blood Cell (WBC) Count 4.7 10x3/uL (4.8-10.8)
[2023-09-16 11:43] LABS: ALT (SGPT) 11 U/L (8-55); AST (SGOT) 12 U/L (5-34); Albumin 3.9 g/dL (3.5-5.0); Alkaline Phosphatase 75 U/L (40-110); Anion Gap 13 mmol/L (10-20); BUN (Urea Nitrogen) 13 mg/dL (9.8-20.1); Bilirubin, Total 0.3 mg/dL (0.2-1.2); Calc. Creatinine Clearance 121 mL/min (70-130); Calcium 9.2 mg/dL (7.8-10.44); Carbon Dioxide 19 mmol/L (22-29); Chloride 108 mmol/L (98-107); Estimated GFR 102; Globulin 3.2 g/dL (2.4-3.5); Glucose 153 mg/dL (70-105); Potassium 4.1 mmol/L (3.5-5.1); Protein, Total 7.1 g/dL (6.0-8.3); Sodium 136 mmol/L (136-145)
[2023-09-16] MEDS: Atorvastatin Calcium 40 MG TAB PO SCH (21:33)
[2023-09-16] MEDS: traZODone HCl 50 MG TAB PO SCH (21:34)
[2023-09-16] MEDS: OLANZapine 5 MG TAB PO SCH (21:35)
[2023-09-16] MEDS: Nicotine 14 MG PATCH TD SCH (21:35)
[2023-09-17] MEDS: Gabapentin 300 MG CAP PO SCH ×3 (10:13→20:32)
[2023-09-17] MEDS: Famotidine 20 MG TAB PO SCH ×2 (10:13→20:32)
[2023-09-17] MEDS: Aspirin Chewable 81 MG TAB PO SCH (10:14)
[2023-09-17] MEDS: Phenytoin Extended Release 100 MG CAP PO SCH ×3 (10:14→20:31)
[2023-09-17] MEDS: metFORMIN 500 MG TAB PO SCH ×2 (10:15→18:01)
[2023-09-17] MEDS: Venlafaxine HCl XR 75 MG CAP PO SCH (10:15)
[2023-09-17] MEDS: Enoxaparin 40 MG (0.4 mL) SYRINGE SC SCH (10:15)
[2023-09-17] MEDS: Clopidogrel Bisulfate 75 MG TAB PO SCH (10:15)
[2023-09-17] MEDS ORDERED: Magnevist 469MG/ML 20 ML VIAL ONE (11:28)
[2023-09-17] MEDS ORDERED: Lorazepam 0.5 MG TAB PO SCH (13:45)
[2023-09-17 18:18] LABS: #Eosinphils 0.1 thou/uL (0.0-0.7); #Monocytes 0.6 thou/uL (0.11-0.59); #Neutrophils 3.9 thou/uL (1.40-6.50); %Basophils 0.6 % (0.0-1.0); %Eosinophils 1.8 % (0.0-10.0); %Lymphocytes 29.8 % (21.0-51.0); %Monocytes 9.5 % (0.0-10.0); Hematocrit 43.1 % (36.0-47.0); Mean Corpuscular HGB CONC 32.5 g/dL (32.0-36.0); Mean Corpuscular Hemoglobin 31.7 pg (27.0-31.0); Mean Corpuscular Volume 97.5 fl (78.0-98.0); Mean Platelet Volume 9.8 fL (7.4-10.4); Platelet Count 373 10x3/uL (130-400); RBC Distribution Width 13.8 % (11.5-14.5); Red Blood Cell (RBC) Count 4.42 mill/uL (4.20-5.40); White Blood Cell (WBC) Count 6.7 10x3/uL (4.8-10.8)
[2023-09-17 18:42] LABS: ALT (SGPT) 9 U/L (8-55); AST (SGOT) 12 U/L (5-34); Albumin 4.1 g/dL (3.5-5.0); Alkaline Phosphatase 82 U/L (40-110); Anion Gap 15 mmol/L (10-20); BUN (Urea Nitrogen) 19 mg/dL (9.8-20.1); Bilirubin, Total 0.2 mg/dL (0.2-1.2); Calc. Creatinine Clearance 108 mL/min (70-130); Calcium 9.5 mg/dL (7.8-10.44); Carbon Dioxide 22 mmol/L (22-29); Chloride 105 mmol/L (98-107); Estimated GFR 88; Globulin 3.7 g/dL (2.4-3.5); Glucose 125 mg/dL (70-105); Potassium 4.1 mmol/L (3.5-5.1); Protein, Total 7.8 g/dL (6.0-8.3); Sodium 138 mmol/L (136-145)
[2023-09-17] MEDS: Atorvastatin Calcium 40 MG TAB PO SCH (20:31)
[2023-09-17] MEDS: OLANZapine 5 MG TAB PO SCH (20:31)
[2023-09-17] MEDS: traZODone HCl 50 MG TAB PO SCH (20:32)
[2023-09-17] MEDS: Melatonin 3 MG TAB PO PRN (20:33)
[2023-09-17] MEDS: Nicotine 14 MG PATCH TD SCH (21:22)
[2023-09-18] MEDS: metFORMIN 500 MG TAB PO SCH ×2 (08:07→17:31)
[2023-09-18] MEDS: Clopidogrel Bisulfate 75 MG TAB PO SCH (08:08)
[2023-09-18] MEDS: Phenytoin Extended Release 100 MG CAP PO SCH ×3 (08:08→20:30)
[2023-09-18] MEDS: Famotidine 20 MG TAB PO SCH ×2 (08:08→20:30)
[2023-09-18] MEDS: Aspirin Chewable 81 MG TAB PO SCH (08:09)
[2023-09-18] MEDS: Gabapentin 300 MG CAP PO SCH (08:09)
[2023-09-18] MEDS: Venlafaxine HCl XR 75 MG CAP PO SCH (08:09)
[2023-09-18] MEDS: Enoxaparin 40 MG (0.4 mL) SYRINGE SC SCH (08:10)
[2023-09-18 14:17] LABS: #Eosinphils 0.1 thou/uL (0.0-0.7); #Monocytes 0.6 thou/uL (0.11-0.59); %Basophils 0.5 % (0.0-1.0); %Eosinophils 1.7 % (0.0-10.0); %Lymphocytes 26.6 % (21.0-51.0); %Monocytes 9.1 % (0.0-10.0); %Neutrophils 61.8 % (42.0-75.0); Hematocrit 44.1 % (36.0-47.0); Hemoglobin 14.3 g/dL (12.0-16.0); Mean Corpuscular HGB CONC 32.4 g/dL (32.0-36.0); Mean Corpuscular Hemoglobin 31.8 pg (27.0-31.0); Mean Corpuscular Volume 98.2 fl (78.0-98.0); Platelet Count 368 10x3/uL (130-400); RBC Distribution Width 13.8 % (11.5-14.5); Red Blood Cell (RBC) Count 4.49 mill/uL (4.20-5.40); White Blood Cell (WBC) Count 6.5 10x3/uL (4.8-10.8)
[2023-09-18] MEDS: Gabapentin 400 MG CAP PO SCH ×2 (15:44→20:31)
[2023-09-18 16:07] LABS: ALT (SGPT) 12 U/L (8-55); AST (SGOT) 15 U/L (5-34); Albumin 4.1 g/dL (3.5-5.0); Alkaline Phosphatase 89 U/L (40-110); Anion Gap 19 mmol/L (10-20); BUN (Urea Nitrogen) 18 mg/dL (9.8-20.1); Bilirubin, Total 0.2 mg/dL (0.2-1.2); Calc. Creatinine Clearance 108 mL/min (70-130); Calcium 9.7 mg/dL (7.8-10.44); Carbon Dioxide 19 mmol/L (22-29); Chloride 105 mmol/L (98-107); Estimated GFR 88; Globulin 3.8 g/dL (2.4-3.5); Glucose 213 mg/dL (70-105); Protein, Total 7.9 g/dL (6.0-8.3); Sodium 139 mmol/L (136-145)
[2023-09-18] MEDS: traZODone HCl 50 MG TAB PO SCH (20:30)
[2023-09-18] MEDS: OLANZapine 5 MG TAB PO SCH (20:31)
[2023-09-18] MEDS: Atorvastatin Calcium 40 MG TAB PO SCH (20:31)
[2023-09-18] MEDS: Melatonin 3 MG TAB PO PRN (20:34)
[2023-09-18] MEDS: Nicotine 14 MG PATCH TD SCH (20:37)
[2023-09-19 06:05] LABS: #Eosinphils 0.1 thou/uL (0.0-0.7); #Monocytes 0.6 thou/uL (0.11-0.59); #Neutrophils 3.6 thou/uL (1.40-6.50); %Basophils 0.5 % (0.0-1.0); %Eosinophils 1.9 % (0.0-10.0); %Lymphocytes 31.5 % (21.0-51.0); %Monocytes 9.8 % (0.0-10.0); %Neutrophils 55.8 % (42.0-75.0); Hematocrit 43.2 % (36.0-47.0); Hemoglobin 14.1 g/dL (12.0-16.0); Mean Corpuscular HGB CONC 32.6 g/dL (32.0-36.0); Mean Corpuscular Hemoglobin 31.6 pg (27.0-31.0); Mean Corpuscular Volume 96.9 fl (78.0-98.0); Mean Platelet Volume 10.1 fL (7.4-10.4); Platelet Count 345 10x3/uL (130-400); RBC Distribution Width 13.7 % (11.5-14.5); Red Blood Cell (RBC) Count 4.46 mill/uL (4.20-5.40); White Blood Cell (WBC) Count 6.4 10x3/uL (4.8-10.8)
[2023-09-19 06:33] LABS: ALT (SGPT) 14 U/L (8-55); AST (SGOT) 18 U/L (5-34); Alkaline Phosphatase 83 U/L (40-110); Anion Gap 14 mmol/L (10-20); BUN (Urea Nitrogen) 19 mg/dL (9.8-20.1); Bilirubin, Total 0.2 mg/dL (0.2-1.2); Calc. Creatinine Clearance 110 mL/min (70-130); Calcium 9.7 mg/dL (7.8-10.44); Carbon Dioxide 24 mmol/L (22-29); Chloride 105 mmol/L (98-107); Estimated GFR 91; Globulin 3.5 g/dL (2.4-3.5); Glucose 102 mg/dL (70-105); Protein, Total 7.5 g/dL (6.0-8.3); Sodium 139 mmol/L (136-145)
[2023-09-19] MEDS: Enoxaparin 40 MG (0.4 mL) SYRINGE SC SCH (09:02)
[2023-09-19] MEDS: Phenytoin Extended Release 100 MG CAP PO SCH (09:02)
[2023-09-19] MEDS: Venlafaxine HCl XR 75 MG CAP PO SCH (09:02)
[2023-09-19] MEDS: Famotidine 20 MG TAB PO SCH (09:02)
[2023-09-19] MEDS: metFORMIN 500 MG TAB PO SCH (09:02)
[2023-09-19] MEDS: Gabapentin 400 MG CAP PO SCH (09:02)
[2023-09-19] MEDS: Clopidogrel Bisulfate 75 MG TAB PO SCH (09:02)
[2023-09-19] MEDS: Aspirin Chewable 81 MG TAB PO SCH (09:02)
[2023-09-19 09:32] VITALS: BP 123/81; TEMP 97.8
== END 2023-09-19 10:17 | disposition left against medical advice (07) | DRG 880 ==
LOC: ERS 19:34 → ERHOLD 21:28 → 2SE 09-15 15:02
PROVIDERS: ADMIT Student in an Organized Health Care Education/Training Program; ATTEND Student in an Organized Health Care Education/Training Program
DX: F44.4 Conversion disorder with motor symptom or deficit (principal); G45.9 Transient cerebral ischemic attack, unspecified; I69.954 Hemiplegia and hemiparesis following unspecified cerebrovascular disease affecting left non-dominant side; Z88.8 Allergy status to other drugs, medicaments and biological substances; K21.9 Gastro-esophageal reflux disease without esophagitis; M06.9 Rheumatoid arthritis, unspecified; E11.42 Type 2 diabetes mellitus with diabetic polyneuropathy; J44.9 Chronic obstructive pulmonary disease, unspecified; F41.9 Anxiety disorder, unspecified; I10 Essential (primary) hypertension; E78.5 Hyperlipidemia, unspecified; Z79.899 Other long term (current) drug therapy; Z82.49 Family history of ischemic heart disease and other diseases of the circulatory system; Z83.3 Family history of diabetes mellitus; E87.6 Hypokalemia; F25.9 Schizoaffective disorder, unspecified; F31.9 Bipolar disorder, unspecified; Z79.82 Long term (current) use of aspirin
CPT/HCPCS: 0042T; 36415; 36416; 70450; 70496; 70498; 70551; 71045; 72156; 80053; 80061; 80306; 80307; 81001; 83605; 83690; 83735; 84439; 84443; 84484; 85025; 85610; 85730; 86850; 86900; 86901; 87086; 93005; A9579; J1650; J1815; Q9967

== ENCOUNTER 2023-09-25 10:14 | Emergency (ER) | payer OTHER ==
[2023-09-25 11:59] LABS: #Eosinphils 0.1 thou/uL (0.0-0.7); #Monocytes 0.5 thou/uL (0.11-0.59); #Neutrophils 2.6 thou/uL (1.40-6.50); %Basophils 0.6 % (0.0-1.0); %Eosinophils 1.9 % (0.0-10.0); %Lymphocytes 36.3 % (21.0-51.0); %Monocytes 10.1 % (0.0-10.0); %Neutrophils 50.7 % (42.0-75.0); Hematocrit 37.6 % (36.0-47.0); Hemoglobin 12.3 g/dL (12.0-16.0); Mean Corpuscular HGB CONC 32.7 g/dL (32.0-36.0); Mean Corpuscular Hemoglobin 31.6 pg (27.0-31.0); Mean Corpuscular Volume 96.7 fl (78.0-98.0); Mean Platelet Volume 9.9 fL (7.4-10.4); Platelet Count 324 10x3/uL (130-400); RBC Distribution Width 13.4 % (11.5-14.5); Red Blood Cell (RBC) Count 3.89 mill/uL (4.20-5.40); White Blood Cell (WBC) Count 5.2 10x3/uL (4.8-10.8)
[2023-09-25] MEDS ORDERED: methylPREDNISolone Sod Succ/PF 125 MG/2 ML VIAL ONE (12:01)
[2023-09-25] MEDS ORDERED: Dicyclomine 20 MG/2 ML VIAL ONE (12:01)
[2023-09-25] MEDS ORDERED: Ondansetron PF 4 MG/2 ML Vial ONE (12:01)
[2023-09-25 12:11] LABS: PTT 27.5 sec (22.9-36.1); Prothrombin Time 13.2 sec (12.0-14.7)
[2023-09-25 12:26] LABS: ALT (SGPT) 18 U/L (8-55); AST (SGOT) 18 U/L (5-34); Albumin 3.8 g/dL (3.5-5.0); Alkaline Phosphatase 72 U/L (40-110); Anion Gap 12 mmol/L (10-20); BUN (Urea Nitrogen) 16 mg/dL (9.8-20.1); Bilirubin, Total 0.2 mg/dL (0.2-1.2); Calc. Creatinine Clearance 0 mL/min (70-130); Calcium 8.8 mg/dL (7.8-10.44); Carbon Dioxide 23 mmol/L (22-29); Chloride 110 mmol/L (98-107); Estimated GFR 102; Glucose 103 mg/dL (70-105); Lipase 33 U/L (8-78); Magnesium 2.1 mg/dL (1.6-2.6); Potassium 4.3 mmol/L (3.5-5.1); Protein, Total 6.8 g/dL (6.0-8.3); Sodium 141 mmol/L (136-145)
[2023-09-25 13:40] LABS: Bacteria/HPF None Seen HPF (None Seen); Bilirubin Negative (Negative); Blood, Urine Negative (Negative); CAUTI Indications for Culture Dysuria,urgency,freq; Clarity Clear (Clear); Glucose, Urine (Dipstick) Normal (Negative); Ketone, Urine Negative (Negative); Leukocyte Negative Leu/uL (Negative); Nitrite Negative (Negative); Protein, Urine (Dipstick) Negative (Neg-Trace); RBC/HPF 0-3 HPF (0-3); Specific Gravity, Urine 1.029 (1.002-1.036); Urobilinogen Normal mg/dL (Less than 2); WBC/HPF 0-3 HPF (0-3); pH, Urine 5.5 (5.0-9.0)
[2023-09-25] MEDS ORDERED: Ipratropium/Albuterol 3 ML NEB ONE (13:43)
[2023-09-25 14:06] LABS: Urine Culture Reflex No No
[2023-09-25 14:38] LABS: SARS-CoV-2 NAA Rapid Test Not Detected (NotDetected)
== END 2023-09-25 15:53 | disposition home or self-care (01) ==
LOC: ERS 10:14
DX: S00.532A Contusion of oral cavity, initial encounter (principal); R10.33 Periumbilical pain; I10 Essential (primary) hypertension; E11.42 Type 2 diabetes mellitus with diabetic polyneuropathy; J44.9 Chronic obstructive pulmonary disease, unspecified; W22.8XXA Striking against or struck by other objects, initial encounter
CPT/HCPCS: 36415; 70450; 70486; 71045; 74177; 80053; 81001; 82274; 83605; 83690; 83735; 85025; 85610; 85730; 93005; 94760; 96372; 96374; 96375; J2405; J2930; J7620; Q9967

== ENCOUNTER 2023-10-25 03:36 | Emergency (ER) | payer OTHER ==
[2023-10-25] MEDS ORDERED: Fosphenytoin Sodium 500 mg/10 ml Vial ONE (04:55)
== END 2023-10-25 08:51 | disposition home or self-care (01) ==
LOC: ERS 03:36
DX: S60.212A Contusion of left wrist, initial encounter (principal); S70.01XA Contusion of right hip, initial encounter; G40.909 Epilepsy, unspecified, not intractable, without status epilepticus; F10.10 Alcohol abuse, uncomplicated; F14.10 Cocaine abuse, uncomplicated; W19.XXXA Unspecified fall, initial encounter; I10 Essential (primary) hypertension; K21.9 Gastro-esophageal reflux disease without esophagitis; E11.42 Type 2 diabetes mellitus with diabetic polyneuropathy; E78.5 Hyperlipidemia, unspecified; J44.9 Chronic obstructive pulmonary disease, unspecified; F17.210 Nicotine dependence, cigarettes, uncomplicated; Z86.73 Personal history of transient ischemic attack (TIA), and cerebral infarction without residual deficits; Z79.84 Long term (current) use of oral hypoglycemic drugs; Z79.899 Other long term (current) drug therapy
CPT/HCPCS: 72170; 96365; 96366; Q2009

== ENCOUNTER 2023-11-01 01:28 | Emergency (ER) | payer OTHER ==
[2023-11-01] MEDS ORDERED: Morphine 4 MG/ML VIAL ONE (01:44)
[2023-11-01] MEDS ORDERED: Morphine 2 MG/ML VIAL ONE (01:44)
[2023-11-01] MEDS ORDERED: Ondansetron ODT 4 MG TAB ONE (01:45)
== END 2023-11-01 02:50 | disposition home or self-care (01) ==
LOC: ERS 01:28
DX: S63.502A Unspecified sprain of left wrist, initial encounter (principal); M25.572 Pain in left ankle and joints of left foot; I10 Essential (primary) hypertension; J44.9 Chronic obstructive pulmonary disease, unspecified; E11.42 Type 2 diabetes mellitus with diabetic polyneuropathy; E78.5 Hyperlipidemia, unspecified; Q74.8 Other specified congenital malformations of limb(s); F17.210 Nicotine dependence, cigarettes, uncomplicated; K21.9 Gastro-esophageal reflux disease without esophagitis; Z55.6 Problems related to health literacy; Z79.899 Other long term (current) drug therapy; Z79.84 Long term (current) use of oral hypoglycemic drugs
CPT/HCPCS: 96372; J2270; J2272; Q0162

== ENCOUNTER 2024-02-02 06:00 | Emergency (ER) | payer OTHER ==
[2024-02-02 07:20] LABS: #Basophils 0.04 10x3/uL (0.0-0.2); %Basophils 0.6 % (0.0-1.0); %Eosinophils 3.2 % (0.0-10.0); %Lymphocytes 34.3 % (21.0-51.0); %Monocytes 9.3 % (0.0-10.0); Hematocrit 39.6 % (36.0-47.0); Hemoglobin 13.3 g/dL (12.0-16.0); Mean Corpuscular HGB CONC 33.6 g/dL (32.0-36.0); Mean Corpuscular Hemoglobin 31.9 pg (27.0-31.0); Mean Platelet Volume 9.3 fL (7.4-10.4); Platelet Count 341 10x3/uL (130-400); Red Blood Cell (RBC) Count 4.17 mill/uL (4.20-5.40)
[2024-02-02 07:32] LABS: PTT 28.2 sec (22.9-36.1); Prothrombin Time 13.1 sec (12.0-14.7)
[2024-02-02] MEDS ORDERED: Aspirin Chewable 81 MG TAB ONE (07:43)
[2024-02-02 07:44] LABS: ALT (SGPT) 33 U/L (8-55); AST (SGOT) 28 U/L (5-34); Albumin 3.6 g/dL (3.5-5.0); Alkaline Phosphatase 90 U/L (40-110); Anion Gap 17 mmol/L (10-20); BUN (Urea Nitrogen) 12 mg/dL (9.8-20.1); Bilirubin, Total 0.2 mg/dL (0.2-1.2); Calc. Creatinine Clearance 0 mL/min (70-130); Calcium 9.1 mg/dL (7.8-10.44); Carbon Dioxide 19 mmol/L (22-29); Chloride 107 mmol/L (98-107); Estimated GFR 91; Globulin 3.7 g/dL (2.4-3.5); Glucose 141 mg/dL (70-105); Magnesium 1.9 mg/dL (1.6-2.6); Potassium 4.1 mmol/L (3.5-5.1); Protein, Total 7.3 g/dL (6.0-8.3); Sodium 139 mmol/L (136-145)
[2024-02-02 07:46] LABS: Troponin I Less than 0.010 ng/mL (< 0.028)
[2024-02-02] MEDS ORDERED: Iopamidol-370 76% 500 ML MDV (1 ML CHARGE) ONE (11:58)
== END 2024-02-02 12:05 | disposition home or self-care (01) ==
LOC: ERS 06:00
DX: G45.9 Transient cerebral ischemic attack, unspecified (principal); I10 Essential (primary) hypertension; E11.42 Type 2 diabetes mellitus with diabetic polyneuropathy; G40.409 Other generalized epilepsy and epileptic syndromes, not intractable, without status epilepticus; J44.9 Chronic obstructive pulmonary disease, unspecified; F17.210 Nicotine dependence, cigarettes, uncomplicated; Z79.82 Long term (current) use of aspirin; Z79.84 Long term (current) use of oral hypoglycemic drugs; Z79.899 Other long term (current) drug therapy
CPT/HCPCS: 36415; 36416; 70450; 70496; 70498; 70551; 71045; 80053; 83735; 83880; 84443; 84484; 85025; 85610; 85730; 93005; Q9967

== ENCOUNTER 2024-02-07 02:37 | Emergency (ER) | payer OTHER ==
[2024-02-07] MEDS ORDERED: Ondansetron PF 4 MG/2 ML Vial ONE (05:09)
[2024-02-07 05:17] LABS: #Basophils 0.03 10x3/uL (0.0-0.2); %Basophils 0.4 % (0.0-1.0); %Eosinophils 1.3 % (0.0-10.0); %Lymphocytes 29.9 % (21.0-51.0); %Monocytes 8.5 % (0.0-10.0); %Neutrophils 59.3 % (42.0-75.0); Hematocrit 37.2 % (36.0-47.0); Hemoglobin 12.9 g/dL (12.0-16.0); Mean Corpuscular HGB CONC 34.7 g/dL (32.0-36.0); Mean Corpuscular Volume 92.3 fL (78.0-98.0); Mean Platelet Volume 9.6 fL (7.4-10.4); Platelet Count 366 10x3/uL (130-400); RBC Distribution Width 12.6 % (11.5-14.5); Red Blood Cell (RBC) Count 4.03 mill/uL (4.20-5.40)
[2024-02-07 05:26] LABS: BHCG - Serum Negative (NEGATIVE); Pregs Control Background? CLEAR/WHITE (CLR/WHITE); Pregs Control Bar Appear? YES (CONTROL BAR)
[2024-02-07 05:28] LABS: Dilantin Less than 1.8 ug/mL (10.0-20.0)
[2024-02-07 05:32] LABS: ALT (SGPT) 15 U/L (8-55); AST (SGOT) 21 U/L (5-34); Acetaminophen Less than 10 mcg/mL (10.0-30.0); Albumin 3.6 g/dL (3.5-5.0); Alcohol Less than 10.0 mg/dL (Less than 10); Alkaline Phosphatase 88 U/L (40-110); Anion Gap 14 mmol/L (10-20); BUN (Urea Nitrogen) 11 mg/dL (9.8-20.1); Bilirubin, Total 0.2 mg/dL (0.2-1.2); CK (CPK) 395 U/L (29-168); Calc. Creatinine Clearance 0 mL/min (70-130); Calcium 9.5 mg/dL (7.8-10.44); Carbon Dioxide 22 mmol/L (22-29); Chloride 107 mmol/L (98-107); Estimated GFR 103; Globulin 3.8 g/dL (2.4-3.5); Glucose 91 mg/dL (70-105); INR-International Normal Ratio 0.9; Potassium 3.4 mmol/L (3.5-5.1); Protein, Total 7.4 g/dL (6.0-8.3); Salicylate Less than 8.0 mg/dL (15.0-30.0); Sodium 140 mmol/L (136-145)
[2024-02-07 05:33] LABS: PTT 27.4 sec (22.9-36.1)
[2024-02-07 05:36] LABS: Troponin I Less than 0.010 ng/mL (< 0.028)
[2024-02-07 07:35] LABS: Amphetamine Not Detected (NotDetected); Barbiturates Screen Detected (NotDetected); Benzodiazepine Screen Not Detected (NotDetected); Cocaine Metabolite Screen Detected (NotDetected); Methadone Not Detected (NotDetected); Methamphetamine Not Detected (NotDetected); Opiate Screen Not Detected (NotDetected); Oxycodone Screen Not Detected (NotDetected); Phencyclidine (PCP) Not Detected (NotDetected); THC/Cannabinoid Screen Not Detected (NotDetected); Tricyclic Screen Not Detected (NotDetected)
== END 2024-02-07 13:32 | disposition left against medical advice (07) ==
LOC: ERS 02:37
DX: T48.1X2A Poisoning by skeletal muscle relaxants [neuromuscular blocking agents], intentional self-harm, initial encounter (principal); F10.129 Alcohol abuse with intoxication, unspecified; F32.A Depression, unspecified; E11.9 Type 2 diabetes mellitus without complications; I10 Essential (primary) hypertension; J44.9 Chronic obstructive pulmonary disease, unspecified; F17.210 Nicotine dependence, cigarettes, uncomplicated
CPT/HCPCS: 70450; 71045; 80053; 80185; 80306; 80307; 82550; 83605; 84484; 84703; 85025; 85610; 85730; 93005; 96374; J2405

== ENCOUNTER 2024-03-16 02:39 | Emergency (ER) | payer OTHER | END 2024-03-16 05:20 | LOC: ERS 02:39 | DX: Z53.21 Procedure and treatment not carried out due to patient leaving prior to being seen by health care provider (principal) ==

== ENCOUNTER 2024-03-16 22:45 | Emergency (ER) | payer OTHER | END 2024-03-16 23:59 | LOC: ERS 22:45 | DX: Z53.21 Procedure and treatment not carried out due to patient leaving prior to being seen by health care provider (principal) ==

== ENCOUNTER 2024-05-19 02:36 | Emergency (ER) | payer OTHER ==
[2024-05-19 04:10] LABS: Actual Bicarbonate (HCO3v) 24.9 mEq/L (22-28); Base Excess -0.6 mEq/L (-2.0 to +3.0); Calcium, Ionized (venous) 1.16 mmol/L (1.16-1.32); Chloride (VBG) 105 mmol/L (98-106); Hematocrit-VBG 41 % (36.0-47.0); Hemoglobin (Hb) 13.9 g/dL (11.7-16.0); Potassium (VBG) 3.37 mmol/L (3.70-5.30); Sodium 143 mmol/L (133-146); pH (venous) 7.367 (7.32-7.43)
[2024-05-19 04:37] LABS: Acetaminophen Less than 10 mcg/mL (Less than 10); Alcohol Less than 10.0 mg/dL (Less than 10); Salicylate Less than 8.0 mg/dL (Less than 8.0)
[2024-05-19 04:41] LABS: Troponin I Less than 0.010 ng/mL (< 0.028)
[2024-05-19 04:42] LABS: #Basophils Less than 0.03 10x3/uL (0.0-0.2); %Basophils 0.3 % (0.0-1.0); %Eosinophils 1.3 % (0.0-10.0); %Lymphocytes 26.9 % (21.0-51.0); %Monocytes 7.9 % (0.0-10.0); %Neutrophils 63.3 % (42.0-75.0); Hematocrit 39.2 % (36.0-47.0); Hemoglobin 13.7 g/dL (12.0-16.0); Mean Corpuscular HGB CONC 34.9 g/dL (32.0-36.0); Mean Corpuscular Hemoglobin 32.2 pg (27.0-31.0); Mean Corpuscular Volume 92.2 fL (78.0-98.0); Mean Platelet Volume 10.2 fL (7.4-10.4); Platelet Count 352 10x3/uL (130-400); RBC Distribution Width 13.1 % (11.5-14.5); Red Blood Cell (RBC) Count 4.25 mill/uL (4.20-5.40)
[2024-05-19 04:45] LABS: ALT (SGPT) 14 U/L (8-55); AST (SGOT) 15 U/L (5-34); Albumin 3.8 g/dL (3.5-5.0); Alkaline Phosphatase 91 U/L (40-110); Anion Gap 14 mmol/L (10-20); BUN (Urea Nitrogen) 15 mg/dL (9.8-20.1); Bilirubin, Total 0.2 mg/dL (0.2-1.2); Calc. Creatinine Clearance 0 mL/min (70-130); Calcium 9.8 mg/dL (7.8-10.44); Carbon Dioxide 24 mmol/L (22-29); Chloride 108 mmol/L (98-107); Estimated GFR 94; Globulin 3.8 g/dL (2.4-3.5); Glucose 111 mg/dL (70-105); Potassium 3.3 mmol/L (3.5-5.1); Protein, Total 7.6 g/dL (6.0-8.3); Sodium 143 mmol/L (136-145)
[2024-05-19 04:47] LABS: Bacteria/HPF None Seen HPF (None Seen); Bilirubin Negative (Negative); Blood, Urine Negative (Negative); CAUTI Indications for Culture Alt mental st,lethar; Clarity Clear (Clear); Glucose, Urine (Dipstick) Normal (Negative); Ketone, Urine Negative (Negative); Leukocyte Negative Leu/uL (Negative); Nitrite Negative (Negative); Protein, Urine (Dipstick) Negative (Neg-Trace); RBC/HPF 0-3 HPF (0-3); Specific Gravity, Urine 1.005 (1.002-1.036); Squamous Epithelial None Seen HPF (0-3); Urobilinogen Normal mg/dL (Less than 2); WBC/HPF None Seen HPF (0-3)
[2024-05-19 04:53] LABS: Amphetamine Not Detected (NotDetected); Barbiturates Screen Not Detected (NotDetected); Benzodiazepine Screen Not Detected (NotDetected); Cocaine Metabolite Screen Detected (NotDetected); Methadone Not Detected (NotDetected); Methamphetamine Not Detected (NotDetected); Opiate Screen Not Detected (NotDetected); Oxycodone Screen Not Detected (NotDetected); Phencyclidine (PCP) Not Detected (NotDetected); THC/Cannabinoid Screen Not Detected (NotDetected); Tricyclic Screen Not Detected (NotDetected)
[2024-05-19 05:01] LABS: Urine Culture Reflex No No
[2024-05-19] MEDS ORDERED: Acetaminophen 500 MG TAB ONE (05:47)
== END 2024-05-19 06:01 | disposition home or self-care (01) ==
LOC: ERS 02:36
DX: R41.82 Altered mental status, unspecified (principal); F14.90 Cocaine use, unspecified, uncomplicated; F17.210 Nicotine dependence, cigarettes, uncomplicated; J44.9 Chronic obstructive pulmonary disease, unspecified; E11.40 Type 2 diabetes mellitus with diabetic neuropathy, unspecified; I10 Essential (primary) hypertension
CPT/HCPCS: 70450; 71045; 80053; 80306; 80307; 81001; 82805; 83605; 84484; 85025; 93005

== ENCOUNTER 2024-05-31 11:16 | Outpatient (CLI) | payer OTHER ==
[2024-05-31 12:26] LABS: #Basophils 0.03 10x3/uL (0.0-0.2); %Basophils 0.5 % (0.0-1.0); %Eosinophils 1.1 % (0.0-10.0); %Lymphocytes 31.7 % (21.0-51.0); %Monocytes 8.3 % (0.0-10.0); %Neutrophils 58.1 % (42.0-75.0); Hematocrit 41.2 % (36.0-47.0); Hemoglobin 13.7 g/dL (12.0-16.0); Mean Corpuscular HGB CONC 33.3 g/dL (32.0-36.0); Mean Corpuscular Hemoglobin 31.9 pg (27.0-31.0); Mean Corpuscular Volume 95.8 fL (78.0-98.0); Mean Platelet Volume 10.6 fL (7.4-10.4); Platelet Count 283 10x3/uL (130-400); RBC Distribution Width 13.2 % (11.5-14.5)
[2024-05-31 12:52] LABS: Anion Gap 12 mmol/L (10-20); BUN (Urea Nitrogen) 21 mg/dL (9.8-20.1); Calc. Creatinine Clearance 0 mL/min (70-130); Calcium 9.5 mg/dL (7.8-10.44); Carbon Dioxide 25 mmol/L (22-29); Chloride 106 mmol/L (98-107); Estimated GFR 85; Glucose 95 mg/dL (70-105); Potassium 3.7 mmol/L (3.5-5.1); Sodium 139 mmol/L (136-145)
== END 2024-05-31 11:17 | disposition home or self-care (01) ==
LOC: LABBT 11:16
PROVIDERS: ATTEND Orthopaedic Surgery Hand Surgery
DX: Z01.812 Encounter for preprocedural laboratory examination (principal)
CPT/HCPCS: 85025

== ENCOUNTER 2024-06-04 11:25 | Day surgery (SDC) | payer OTHER ==
[2024-05-31 11:23] VITALS: BMI 36.3
[2024-06-04] MEDS ORDERED: Lidocaine 1% MPF 2 ML VIAL ONE (13:41)
[2024-06-04] MEDS ORDERED: Bupivacaine PF 0.5% 30 ML VIAL ONE (14:54)
[2024-06-04] MEDS ORDERED: Bacitracin Zinc Ointment 30 gm TUBE ONE (14:54)
[2024-06-04] MEDS ORDERED: Lidocaine 1% PF 5 ML VIAL ONE (15:00)
[2024-06-04] MEDS ORDERED: PROPOFOL 20 ML ONE ×2 (15:00→15:50)
[2024-06-04] MEDS ORDERED: fentaNYL 50 mcg/mL 1 mL Vial ONE ×2 (15:02→16:02)
[2024-06-04] MEDS ORDERED: Sodium Chloride 0.9% 100 ML ONE (15:05)
[2024-06-04] MEDS ORDERED: CEFAZOLIN 2 GM VIAL ONE (15:05)
[2024-06-04] MEDS ORDERED: Dexamethasone 4 mg/ml Vial ONE (16:24)
[2024-06-04] MEDS ORDERED: Ondansetron PF 4 MG/2 ML Vial ONE (16:24)
[2024-06-04] MEDS ORDERED: hydrALAZINE 20 MG/ML VIAL ONE (17:05)
[2024-06-04] MEDS ORDERED: Ketorolac Tromethamine 30 MG (1 mL) VIAL ONE (17:06)
== END 2024-06-04 18:05 | disposition home or self-care (01) ==
LOC: SDC 11:25
PROVIDERS: ATTEND Orthopaedic Surgery Hand Surgery
PROC: 0LB20ZZ Excision of Left Shoulder Tendon, Open Approach (ICD-10-PCS; principal; 2024-06-04)
DX: M65.4 Radial styloid tenosynovitis [de Quervain] (principal); G56.01 Carpal tunnel syndrome, right upper limb; M65.132 Other infective (teno)synovitis, left wrist; D16.9 Benign neoplasm of bone and articular cartilage, unspecified; G90.512 Complex regional pain syndrome I of left upper limb; E78.00 Pure hypercholesterolemia, unspecified; F32.A Depression, unspecified; Z87.891 Personal history of nicotine dependence; Z79.82 Long term (current) use of aspirin
CPT/HCPCS: 88305; A6223; J0360; J0665; J1100; J1885; J2405; J2704; J3010

== ENCOUNTER 2024-07-01 09:51 | Outpatient (CLI) | payer OTHER ==
[2024-07-01 10:56] LABS: #Basophils Less than 0.03 10x3/uL (0.0-0.2); %Basophils 0.4 % (0.0-1.0); %Eosinophils 1.2 % (0.0-10.0); %Lymphocytes 31.7 % (21.0-51.0); %Monocytes 8.8 % (0.0-10.0); %Neutrophils 57.5 % (42.0-75.0); Hematocrit 40.2 % (36.0-47.0); Hemoglobin 13.5 g/dL (12.0-16.0); Mean Corpuscular HGB CONC 33.6 g/dL (32.0-36.0); Mean Corpuscular Hemoglobin 31.7 pg (27.0-31.0); Mean Corpuscular Volume 94.4 fL (78.0-98.0); Mean Platelet Volume 9.7 fL (7.4-10.4); Platelet Count 291 10x3/uL (130-400); RBC Distribution Width 13.3 % (11.5-14.5); Red Blood Cell (RBC) Count 4.26 mill/uL (4.20-5.40)
[2024-07-01 11:13] LABS: Anion Gap 14 mmol/L (10-20); BUN (Urea Nitrogen) 17 mg/dL (9.8-20.1); Calc. Creatinine Clearance 0 mL/min (70-130); Calcium 9.3 mg/dL (7.8-10.44); Carbon Dioxide 20 mmol/L (22-29); Chloride 111 mmol/L (98-107); Estimated GFR 98; Glucose 120 mg/dL (70-105); Potassium 4.1 mmol/L (3.5-5.1); Sodium 141 mmol/L (136-145)
== END 2024-07-01 09:52 | disposition home or self-care (01) ==
LOC: LABBT 09:51
PROVIDERS: ATTEND Orthopaedic Surgery Hand Surgery
DX: Z01.818 Encounter for other preprocedural examination (principal); M65.331 Trigger finger, right middle finger; M65.4 Radial styloid tenosynovitis [de Quervain]
CPT/HCPCS: 80048; 85025

== ENCOUNTER 2024-07-02 05:48 | Day surgery (SDC) | payer OTHER ==
[2024-07-01 10:09] VITALS: BMI 36.3
[2024-07-02] MEDS ORDERED: CEFAZOLIN 2 GM VIAL ONE (05:52)
[2024-07-02] MEDS ORDERED: Betamet Acet/Betamet Na Ph 30 MG/5 ML VIAL ONE (06:42)
[2024-07-02] MEDS ORDERED: Bupivacaine PF 0.5% 30 ML VIAL ONE (06:43)
[2024-07-02] MEDS ORDERED: Bacitracin Zinc Ointment 30 gm TUBE ONE (06:43)
[2024-07-02] MEDS ORDERED: PROPOFOL 20 ML ONE (06:51)
[2024-07-02] MEDS ORDERED: Lidocaine 1% PF 5 ML VIAL ONE (06:51)
[2024-07-02] MEDS ORDERED: fentaNYL PF 100 MCG/2 ML SYRINGE ONE (06:51)
[2024-07-02] MEDS ORDERED: Ondansetron PF 4 MG/2 ML Vial ONE (07:22)
[2024-07-02] MEDS ORDERED: Dexamethasone 4 mg/ml Vial ONE (07:22)
[2024-07-02] MEDS ORDERED: Ketorolac Tromethamine 30 MG (1 mL) VIAL ONE (08:21)
== END 2024-07-02 10:07 | disposition home or self-care (01) ==
LOC: SDC 05:48
PROVIDERS: ATTEND Orthopaedic Surgery Hand Surgery
PROC: 0LN50ZZ Release Right Lower Arm and Wrist Tendon, Open Approach (ICD-10-PCS; principal; 2024-07-02)
PROC: 0LN70ZZ Release Right Hand Tendon, Open Approach (ICD-10-PCS; principal; 2024-07-02)
DX: M65.331 Trigger finger, right middle finger (principal); M65.4 Radial styloid tenosynovitis [de Quervain]; G90.512 Complex regional pain syndrome I of left upper limb; G56.01 Carpal tunnel syndrome, right upper limb; G56.32 Lesion of radial nerve, left upper limb; I10 Essential (primary) hypertension; E78.00 Pure hypercholesterolemia, unspecified; F32.A Depression, unspecified; E11.9 Type 2 diabetes mellitus without complications; Z87.59 Personal history of other complications of pregnancy, childbirth and the puerperium; Z79.899 Other long term (current) drug therapy; Z87.891 Personal history of nicotine dependence; Z88.5 Allergy status to narcotic agent; Z88.8 Allergy status to other drugs, medicaments and biological substances; Z01.818 Encounter for other preprocedural examination
CPT/HCPCS: 80048; 85025; A6223; J0665; J0702; J1100; J1885; J2405; J2704

== ENCOUNTER 2024-07-20 03:32 | Inpatient (IN) | payer OTHER ==
[2024-07-20 04:52] LABS: #Basophils 0.03 10x3/uL (0.0-0.2); %Basophils 0.4 % (0.0-1.0); %Eosinophils 1.3 % (0.0-10.0); %Lymphocytes 35.7 % (21.0-51.0); %Monocytes 6.5 % (0.0-10.0); %Neutrophils 55.7 % (42.0-75.0); Hematocrit 41.8 % (36.0-47.0); Hemoglobin 13.7 g/dL (12.0-16.0); Mean Corpuscular HGB CONC 32.8 g/dL (32.0-36.0); Mean Corpuscular Hemoglobin 31.3 pg (27.0-31.0); Mean Corpuscular Volume 95.4 fL (78.0-98.0); Mean Platelet Volume 9.5 fL (7.4-10.4); Platelet Count 329 10x3/uL (130-400); RBC Distribution Width 13.5 % (11.5-14.5); Red Blood Cell (RBC) Count 4.38 mill/uL (4.20-5.40)
[2024-07-20 04:57] LABS: Amphetamine Not Detected (NotDetected); Barbiturates Screen Detected (NotDetected); Benzodiazepine Screen Not Detected (NotDetected); Cocaine Metabolite Screen Detected (NotDetected); Methadone Not Detected (NotDetected); Methamphetamine Not Detected (NotDetected); Opiate Screen Not Detected (NotDetected); Oxycodone Screen Not Detected (NotDetected); Phencyclidine (PCP) Not Detected (NotDetected); THC/Cannabinoid Screen Not Detected (NotDetected); Tricyclic Screen Not Detected (NotDetected)
[2024-07-20 05:02] LABS: Magnesium 2.2 mg/dL (1.6-2.6)
[2024-07-20 05:03] LABS: ALT (SGPT) 13 U/L (8-55); AST (SGOT) 21 U/L (5-34); Acetaminophen Less than 10 mcg/mL (Less than 10); Albumin 4.1 g/dL (3.5-5.0); Alcohol 153.1 mg/dL (Less than 10); Alkaline Phosphatase 102 U/L (40-110); Anion Gap 16 mmol/L (10-20); BUN (Urea Nitrogen) 12 mg/dL (9.8-20.1); Bilirubin, Total 0.1 mg/dL (0.2-1.2); Calc. Creatinine Clearance 0 mL/min (70-130); Calcium 9.3 mg/dL (7.8-10.44); Carbon Dioxide 19 mmol/L (22-29); Chloride 107 mmol/L (98-107); Estimated GFR 104; Globulin 4.1 g/dL (2.4-3.5); Glucose 151 mg/dL (70-105); Potassium 3.8 mmol/L (3.5-5.1); Protein, Total 8.2 g/dL (6.0-8.3); Salicylate Less than 8.0 mg/dL (Less than 8.0); Sodium 138 mmol/L (136-145)
[2024-07-20] MEDS ORDERED: Labetalol HCl 100 MG/20 ML VIAL ONE (05:04)
[2024-07-20] MEDS ORDERED: niCARdipine 25 MG/10 ML SDV ONE (06:13)
[2024-07-20] MEDS ORDERED: CEFAZOLIN 2 GM VIAL ONE (06:48)
[2024-07-20] MEDS ORDERED: Cefepime 2 GM VIAL ONE (06:59)
[2024-07-20 08:04] LABS: Bacteria/HPF None Seen HPF (None Seen); Bilirubin Negative (Negative); Blood, Urine Negative (Negative); CAUTI Indications for Culture Dysuria,urgency,freq; Clarity Clear (Clear); Glucose, Urine (Dipstick) Normal (Negative); Ketone, Urine Negative (Negative); Leukocyte Negative Leu/uL (Negative); Nitrite Negative (Negative); Protein, Urine (Dipstick) Negative (Neg-Trace); RBC/HPF 0-3 HPF (0-3); Squamous Epithelial 0-3 HPF (0-3); Urobilinogen Normal mg/dL (Less than 2); WBC/HPF None Seen HPF (0-3); pH, Urine 5.5 (5.0-9.0)
[2024-07-20 08:12] LABS: Urine Culture Reflex No No
[2024-07-20] MEDS ORDERED: Ondansetron ODT 4 MG TAB PO PRN (09:30)
[2024-07-20] MEDS ORDERED: Lorazepam 1 MG TAB PO PRN (09:30)
[2024-07-20] MEDS ORDERED: Electrolyte Replacement Protocol 1 EACH FS SCH (09:30)
[2024-07-20] MEDS ORDERED: Lorazepam 2 MG/ML VIAL IM PRN (09:30)
[2024-07-20 09:40] VITALS: BMI 30.9
[2024-07-20] MEDS ORDERED: Labetalol HCl 100 MG/20 ML VIAL SLOW IVP PRN (09:57)
[2024-07-20] MEDS: Thiamine HCl 200 MG/2 ML VIAL SLOW IVP SCH (09:58)
[2024-07-20] MEDS: Sodium Chloride 0.9% 1,000 ML IV SCH (09:58)
[2024-07-20] MEDS: Nicotine 21 MG PATCH TD SCH (09:58)
[2024-07-20] MEDS: Lorazepam 1 MG TAB PO SCH (09:59)
[2024-07-20 10:22] LABS: #Basophils 0.05 10x3/uL (0.0-0.2); %Basophils 0.7 % (0.0-1.0); %Eosinophils 0.6 % (0.0-10.0); %Lymphocytes 22.7 % (21.0-51.0); %Monocytes 7.8 % (0.0-10.0); Hematocrit 41.2 % (36.0-47.0); Mean Corpuscular Hemoglobin 31.4 pg (27.0-31.0); Mean Corpuscular Volume 92.4 fL (78.0-98.0); Mean Platelet Volume 9.5 fL (7.4-10.4); Platelet Count 331 10x3/uL (130-400); RBC Distribution Width 13.5 % (11.5-14.5); Red Blood Cell (RBC) Count 4.46 mill/uL (4.20-5.40)
[2024-07-20 10:59] LABS: ALT (SGPT) 12 U/L (8-55); AST (SGOT) 18 U/L (5-34); Albumin 4.1 g/dL (3.5-5.0); Alkaline Phosphatase 105 U/L (40-110); Anion Gap 18 mmol/L (10-20); BUN (Urea Nitrogen) 10 mg/dL (9.8-20.1); Bilirubin, Direct 0.1 mg/dL (0.1-0.3); Bilirubin, Total 0.2 mg/dL (0.2-1.2); Calc. Creatinine Clearance 117 mL/min (70-130); Carbon Dioxide 17 mmol/L (22-29); Chloride 110 mmol/L (98-107); Estimated GFR 100; Glucose 105 mg/dL (70-105); Phosphorus 3.9 mg/dL (2.3-4.7); Protein, Total 8.1 g/dL (6.0-8.3); Sodium 141 mmol/L (136-145)
[2024-07-20] MEDS: Magnesium 2 GM/50 ML(in water) 2 GM in Premix 1 BAG IVPB SCH (12:11)
[2024-07-21 05:27] LABS: #Basophils Less than 0.03 10x3/uL (0.0-0.2); %Basophils 0.4 % (0.0-1.0); %Eosinophils 1.6 % (0.0-10.0); %Lymphocytes 33.3 % (21.0-51.0); %Monocytes 9.5 % (0.0-10.0); Hematocrit 40.4 % (36.0-47.0); Hemoglobin 13.3 g/dL (12.0-16.0); Mean Corpuscular HGB CONC 32.9 g/dL (32.0-36.0); Mean Corpuscular Hemoglobin 31.9 pg (27.0-31.0); Mean Corpuscular Volume 96.9 fL (78.0-98.0); Platelet Count 296 10x3/uL (130-400); RBC Distribution Width 14.1 % (11.5-14.5); Red Blood Cell (RBC) Count 4.17 mill/uL (4.20-5.40)
[2024-07-21 05:44] LABS: ALT (SGPT) 13 U/L (8-55); AST (SGOT) 17 U/L (5-34); Albumin 3.5 g/dL (3.5-5.0); Alkaline Phosphatase 95 U/L (40-110); Anion Gap 13 mmol/L (10-20); BUN (Urea Nitrogen) 17 mg/dL (9.8-20.1); Bilirubin, Total 0.3 mg/dL (0.2-1.2); Calc. Creatinine Clearance 102 mL/min (70-130); Calcium 8.3 mg/dL (7.8-10.44); Carbon Dioxide 20 mmol/L (22-29); Chloride 112 mmol/L (98-107); Estimated GFR 84; Globulin 3.4 g/dL (2.4-3.5); Glucose 158 mg/dL (70-105); Potassium 4.2 mmol/L (3.5-5.1); Protein, Total 6.9 g/dL (6.0-8.3); Sodium 141 mmol/L (136-145)
[2024-07-21] MEDS: Enoxaparin 40 MG (0.4 mL) SYRINGE SC SCH (08:56)
[2024-07-21] MEDS: Folic Acid 1 MG TAB PO SCH (08:56)
[2024-07-21] MEDS: Multivit, Therapeutic 1 TAB PO SCH (08:56)
[2024-07-21] MEDS ORDERED: Lorazepam 1 MG TAB PO PRN (09:34)
[2024-07-21] MEDS ORDERED: TRAMADOL HCL 100 MG PO PRN (13:48)
[2024-07-21] MEDS: Gabapentin 400 MG CAP PO SCH (14:13)
[2024-07-21] MEDS: Lorazepam 1 MG TAB PO SCH (14:14)
[2024-07-21] MEDS: Phenytoin Extended Release 100 MG CAP PO SCH (14:14)
[2024-07-21] MEDS: metFORMIN 500 MG TAB PO SCH (17:22)
[2024-07-21] MEDS ORDERED: cloNIDine 0.1 MG TAB PO SCH (21:00)
[2024-07-21] MEDS: OLANZapine 5 MG TAB PO SCH (21:56)
[2024-07-21] MEDS: Cyclobenzaprine 10 MG TAB PO SCH (21:56)
[2024-07-21] MEDS: cloNIDine 0.1 MG TAB PO SCH (21:56)
[2024-07-21] MEDS: Atorvastatin Calcium 40 MG TAB PO SCH (21:57)
[2024-07-21] MEDS: Albuterol 2.5 MG (3 mL) NEB NEB PRN (22:07)
[2024-07-22 05:44] LABS: #Basophils 0.03 10x3/uL (0.0-0.2); %Basophils 0.7 % (0.0-1.0); %Eosinophils 1.8 % (0.0-10.0); %Lymphocytes 40.1 % (21.0-51.0); %Monocytes 11.8 % (0.0-10.0); %Neutrophils 45.2 % (42.0-75.0); Hematocrit 37.1 % (36.0-47.0); Hemoglobin 12.2 g/dL (12.0-16.0); Mean Corpuscular HGB CONC 32.9 g/dL (32.0-36.0); Mean Corpuscular Hemoglobin 31.7 pg (27.0-31.0); Mean Corpuscular Volume 96.4 fL (78.0-98.0); Mean Platelet Volume 10.5 fL (7.4-10.4); Platelet Count 316 10x3/uL (130-400); RBC Distribution Width 13.6 % (11.5-14.5); Red Blood Cell (RBC) Count 3.85 mill/uL (4.20-5.40)
[2024-07-22 05:53] LABS: Anion Gap 13 mmol/L (10-20); BUN (Urea Nitrogen) 19 mg/dL (9.8-20.1); Calc. Creatinine Clearance 121 mL/min (70-130); Calcium 9.2 mg/dL (7.8-10.44); Carbon Dioxide 24 mmol/L (22-29); Chloride 109 mmol/L (98-107); Estimated GFR 102; Glucose 148 mg/dL (70-105); Magnesium 2.1 mg/dL (1.6-2.6); Sodium 142 mmol/L (136-145)
[2024-07-22] MEDS: Losartan 25 MG TAB PO SCH (09:25)
[2024-07-22] MEDS: Venlafaxine HCl XR 75 MG CAP PO SCH (09:26)
[2024-07-22] MEDS ORDERED: Lorazepam 1 MG TAB PO PRN (09:34)
[2024-07-22] MEDS: Ketorolac Tromethamine 30 MG (1 mL) VIAL IVP PRN (09:36)
[2024-07-22] MEDS ORDERED: Lorazepam 0.5 MG TAB PO SCH (09:45)
[2024-07-22 13:20] VITALS: BMI 31.3
[2024-07-22 16:26] VITALS: BP 168/92; TEMP 98.1
[2024-07-23] MEDS ORDERED: Thiamine 100 MG TAB PO SCH (09:00)
[2024-07-23] MEDS ORDERED: Lorazepam 0.5 MG TAB PO PRN (09:34)
== END 2024-07-22 17:26 | DRG 917 ==
LOC: ERS 03:32 → CCU 07:28 → T4-B 07-21 10:41
PROVIDERS: ADMIT Family Medicine; ATTEND Hospitalist
PROC: XX20X89 Monitoring of Brain Electrical Activity, Computer-aided Detection and Notification, New Technology Group 9 (ICD-10-PCS; principal; 2024-07-20)
DX: T43.592A Poisoning by other antipsychotics and neuroleptics, intentional self-harm, initial encounter (principal); G92.8 Other toxic encephalopathy; X58.XXXA Exposure to other specified factors, initial encounter; K21.9 Gastro-esophageal reflux disease without esophagitis; E78.5 Hyperlipidemia, unspecified; I10 Essential (primary) hypertension; M06.9 Rheumatoid arthritis, unspecified; E11.42 Type 2 diabetes mellitus with diabetic polyneuropathy; G40.409 Other generalized epilepsy and epileptic syndromes, not intractable, without status epilepticus; J44.9 Chronic obstructive pulmonary disease, unspecified; F32.A Depression, unspecified; F41.9 Anxiety disorder, unspecified; F25.0 Schizoaffective disorder, bipolar type; I16.0 Hypertensive urgency; E66.9 Obesity, unspecified; F10.129 Alcohol abuse with intoxication, unspecified; Z86.73 Personal history of transient ischemic attack (TIA), and cerebral infarction without residual deficits; Z93.1 Gastrostomy status; Z68.31 Body mass index [BMI] 31.0-31.9, adult; Z93.0 Tracheostomy status; Z88.5 Allergy status to narcotic agent; Z88.8 Allergy status to other drugs, medicaments and biological substances; Z79.51 Long term (current) use of inhaled steroids; Z79.899 Other long term (current) drug therapy
CPT/HCPCS: 36415; 36416; 51702; 70450; 71045; 80048; 80053; 80306; 80307; 81001; 82140; 82248; 82550; 83735; 84100; 84484; 85025; 87040; 87077; 87086; 87149; 93005; 94640; 96361; 96365; 96366; 96368; 96375; J0692; J1650; J1885; J3411; J3475; J7030; J7611

== ENCOUNTER 2024-09-29 07:01 | Inpatient (IN) | payer MEDICAID, OTHER ==
[2024-09-29 07:33] LABS: #Basophils 0.05 10x3/uL (0.0-0.2); %Basophils 0.6 % (0.0-1.0); %Eosinophils 0.8 % (0.0-10.0); %Lymphocytes 30.4 % (21.0-51.0); %Monocytes 10.9 % (0.0-10.0); %Neutrophils 56.9 % (42.0-75.0); Hematocrit 40.2 % (36.0-47.0); Mean Corpuscular HGB CONC 34.8 g/dL (32.0-36.0); Mean Corpuscular Hemoglobin 31.7 pg (27.0-31.0); Mean Corpuscular Volume 91.2 fL (78.0-98.0); Mean Platelet Volume 9.3 fL (7.4-10.4); Platelet Count 369 10x3/uL (130-400); RBC Distribution Width 13.2 % (11.5-14.5); Red Blood Cell (RBC) Count 4.41 mill/uL (4.20-5.40)
[2024-09-29 07:47] LABS: Prothrombin Time 13.1 sec (12.0-14.7)
[2024-09-29 07:48] LABS: PTT 30.8 sec (22.9-36.1)
[2024-09-29 08:04] LABS: Troponin I Less than 0.010 ng/mL (< 0.028)
[2024-09-29 08:08] LABS: ALT (SGPT) 17 U/L (Less than 34); AST (SGOT) 28 U/L (11-34); Albumin 4.3 g/dL (3.1-4.5); Alkaline Phosphatase 125 U/L (40-110); Anion Gap 17 mmol/L (10-20); BUN (Urea Nitrogen) 15 mg/dL (9.8-20.1); Bilirubin, Total 0.2 mg/dL (0.3-1.2); Calc. Creatinine Clearance 0 mL/min (70-130); Calcium 9.6 mg/dL (7.8-10.44); Carbon Dioxide 24 mmol/L (22-29); Chloride 102 mmol/L (98-107); Estimated GFR 93; Globulin 4.1 g/dL (2.4-3.5); Glucose 111 mg/dL (70-105); Potassium 3.4 mmol/L (3.5-5.1); Protein, Total 8.4 g/dL (6.0-8.3); Sodium 140 mmol/L (136-145)
[2024-09-29] MEDS ORDERED: Potassium Chloride 20 MEQ TAB ONE (09:14)
[2024-09-29] MEDS ORDERED: Aspirin Chewable 81 MG TAB ONE (09:14)
[2024-09-29] MEDS ORDERED: Iopamidol-370 76% 500 ML MDV (1 ML CHARGE) ONE (10:40)
[2024-09-29] MEDS ORDERED: hydrALAZINE 20 MG/ML VIAL SLOW IVP PRN (18:10)
[2024-09-29] MEDS ORDERED: Senokot S 8.6-50 MG TAB PO PRN (18:10)
[2024-09-29] MEDS ORDERED: Calcium Carbonate 500 MG ChewTAB PO PRN (18:10)
[2024-09-29] MEDS ORDERED: Ondansetron PF 4 MG/2 ML Vial IVP PRN (18:10)
[2024-09-29] MEDS ORDERED: Acetaminophen 325 MG TAB PO PRN (18:10)
[2024-09-29] MEDS ORDERED: Glucagon 1 MG/ML KIT IM PRN (18:13)
[2024-09-29] MEDS ORDERED: Dextrose 5% in Water 1,000 ML IV PRN (18:13)
[2024-09-29] MEDS ORDERED: Insulin Lispro 100 UNIT/ML 10 ML VIAL SC PRN (18:13)
[2024-09-29] MEDS ORDERED: Dextrose 50% Abboject 50 ML SYRINGE SLOW IVP PRN (18:13)
[2024-09-29] MEDS ORDERED: Lorazepam 2 MG/ML VIAL ONE (18:25)
[2024-09-29] MEDS ORDERED: OLANZapine 5 MG TAB ONE (21:37)
[2024-09-29] MEDS ORDERED: Phenytoin Extended Release 100 MG CAP ONE (21:38)
[2024-09-29] MEDS ORDERED: Atorvastatin Calcium 40 MG TAB ONE (21:38)
[2024-09-29] MEDS: Phenytoin Extended Release 100 MG CAP PO SCH (21:49)
[2024-09-29] MEDS: OLANZapine 5 MG TAB PO SCH (21:49)
[2024-09-29] MEDS: Atorvastatin Calcium 40 MG TAB PO SCH (21:49)
[2024-09-30 05:16] LABS: #Basophils Less than 0.03 10x3/uL (0.0-0.2); %Basophils 0.3 % (0.0-1.0); %Eosinophils 0.8 % (0.0-10.0); %Lymphocytes 28.2 % (21.0-51.0); %Monocytes 11.1 % (0.0-10.0); %Neutrophils 59.1 % (42.0-75.0); Hematocrit 45.1 % (36.0-47.0); Hemoglobin 15.5 g/dL (12.0-16.0); Mean Corpuscular HGB CONC 34.4 g/dL (32.0-36.0); Mean Corpuscular Hemoglobin 31.6 pg (27.0-31.0); Mean Corpuscular Volume 91.9 fL (78.0-98.0); Platelet Count 300 10x3/uL (130-400); RBC Distribution Width 13.7 % (11.5-14.5); Red Blood Cell (RBC) Count 4.91 mill/uL (4.20-5.40)
[2024-09-30 05:35] LABS: Hemoglobin A1c 5.9 % (4.0-6.0)
[2024-09-30 05:37] LABS: Albumin 4.1 g/dL (3.1-4.5); Alkaline Phosphatase 108 U/L (40-110); Anion Gap 22 mmol/L (10-20); BUN (Urea Nitrogen) 17 mg/dL (9.8-20.1); Calcium 9.7 mg/dL (7.8-10.44); Carbon Dioxide 17 mmol/L (22-29); Cardiac Risk 3.5 (Less than 4.5); Chloride 108 mmol/L (98-107); Cholesterol 218 mg/dl (< 200 Desired); Globulin 4.3 g/dL (2.4-3.5); Glucose 100 mg/dL (70-105); HDL Cholesterol 63 mg/dL (>60 Neg Risk); LDL Cholesterol, Calculated 126 mg/dL; Potassium 3.7 mmol/L (3.5-5.1); Protein, Total 8.4 g/dL (6.0-8.3); Sodium 143 mmol/L (136-145); Triglycerides 145 mg/dL (Less than 150)
[2024-09-30 07:21] VITALS: BMI 29.2
[2024-09-30 07:36] LABS: Bilirubin, Total 0.2 mg/dL (0.3-1.2)
[2024-09-30 07:37] LABS: Calc. Creatinine Clearance 119 mL/min (70-130); Estimated GFR 103
[2024-09-30 07:39] LABS: ALT (SGPT) 12 U/L (Less than 34); AST (SGOT) 32 U/L (11-34)
[2024-09-30] MEDS: Aspirin 81 mg Enteric Coated Tablet PO SCH (10:05)
[2024-09-30] MEDS: Enoxaparin 40 MG (0.4 mL) SYRINGE SC SCH (10:05)
[2024-09-30] MEDS: Venlafaxine HCl XR 75 MG CAP PO SCH (10:05)
[2024-10-01 00:42] LABS: Amphetamine Detected (NotDetected); Barbiturates Screen Detected (NotDetected); Benzodiazepine Screen Detected (NotDetected); Cocaine Metabolite Screen Detected (NotDetected); Methadone Not Detected (NotDetected); Methamphetamine Detected (NotDetected); Opiate Screen Not Detected (NotDetected); Oxycodone Screen Not Detected (NotDetected); Phencyclidine (PCP) Detected (NotDetected); THC/Cannabinoid Screen Detected (NotDetected); Tricyclic Screen Detected (NotDetected)
[2024-10-01 10:04] VITALS: BMI 29.2
[2024-10-02 04:06] LABS: #Basophils Less than 0.03 10x3/uL (0.0-0.2); %Basophils 0.4 % (0.0-1.0); %Eosinophils 1.6 % (0.0-10.0); %Lymphocytes 38.2 % (21.0-51.0); %Monocytes 11.5 % (0.0-10.0); %Neutrophils 47.9 % (42.0-75.0); Hematocrit 39.1 % (36.0-47.0); Hemoglobin 12.9 g/dL (12.0-16.0); Mean Corpuscular Hemoglobin 31.5 pg (27.0-31.0); Mean Corpuscular Volume 95.4 fL (78.0-98.0); Mean Platelet Volume 9.9 fL (7.4-10.4); Platelet Count 333 10x3/uL (130-400); RBC Distribution Width 13.6 % (11.5-14.5)
[2024-10-02 04:23] LABS: Anion Gap 14 mmol/L (10-20); BUN (Urea Nitrogen) 16 mg/dL (9.8-20.1); Calc. Creatinine Clearance 139 mL/min (70-130); Carbon Dioxide 24 mmol/L (22-29); Chloride 109 mmol/L (98-107); Estimated GFR 107; Glucose 111 mg/dL (70-105); Magnesium 2.1 mg/dL (1.6-2.6); Potassium 3.9 mmol/L (3.5-5.1); Sodium 143 mmol/L (136-145)
[2024-10-02] MEDS: Insulin Lispro 100 UNIT/ML 10 ML VIAL SC PRN (12:38)
[2024-10-02] MEDS: Losartan 25 MG TAB PO SCH (21:20)
[2024-10-02] MEDS: Phenytoin Extended Release 100 MG CAP PO SCH (21:21)
[2024-10-03] MEDS: Losartan 25 MG TAB PO SCH (10:11)
[2024-10-04 08:51] VITALS: BP 129/83; TEMP 97.6
== END 2024-10-04 10:33 | disposition home or self-care (01) | DRG 880 ==
LOC: SUATTDRO 07:01 → ERS 07:01 → ERHOLD 18:10 → 2SE 09-30 06:34 → OBSVTOIN 09-30 18:06
PROVIDERS: ADMIT Internal Medicine; ATTEND Internal Medicine
PROC: 4A00X4Z Measurement of Central Nervous Electrical Activity, External Approach (ICD-10-PCS; principal; 2024-09-30)
DX: F44.4 Conversion disorder with motor symptom or deficit (principal); F39 Unspecified mood [affective] disorder; R53.1 Weakness; G93.89 Other specified disorders of brain; I10 Essential (primary) hypertension; E78.5 Hyperlipidemia, unspecified; Z88.8 Allergy status to other drugs, medicaments and biological substances; G40.909 Epilepsy, unspecified, not intractable, without status epilepticus; J44.9 Chronic obstructive pulmonary disease, unspecified; M19.90 Unspecified osteoarthritis, unspecified site; E11.40 Type 2 diabetes mellitus with diabetic neuropathy, unspecified; Z79.899 Other long term (current) drug therapy; Z79.82 Long term (current) use of aspirin
CPT/HCPCS: 36415; 36416; 36556; 70450; 70496; 70498; 70551; 71045; 72141; 80048; 80053; 80061; 80306; 83036; 83735; 84443; 84484; 85025; 85610; 85730; 93005; 94760; 95700; 95711; 95957; 96374; J1650; J1815; J2060; Q9967

== ENCOUNTER 2025-03-27 20:06 | Emergency (ER) | payer MEDICAID, OTHER ==
[2025-03-27] MEDS ORDERED: Ketorolac Tromethamine 30 MG (1 mL) VIAL ONE (21:26)
[2025-03-27 21:30] LABS: #Basophils 0.04 10x3/uL (0.0-0.2); #Eosinophils 0.06 10x3/uL (0.0-0.7); #Monocytes 0.53 10x3/uL (0.11-0.59); #Neutrophils 3.79 10x3/uL (1.40-6.50); %Basophils 0.6 % (0.0-1.0); %Eosinophils 0.9 % (0.0-10.0); %Lymphocytes 32.5 % (21.0-51.0); %Monocytes 8.1 % (0.0-10.0); %Neutrophils 57.6 % (42.0-75.0); Hematocrit 35.4 % (36.0-47.0); Hemoglobin 11.9 g/dL (12.0-16.0); Mean Corpuscular Hemoglobin 31.3 pg (27.0-31.0); Mean Corpuscular Volume 93.2 fL (78.0-98.0); Platelet Count 340 10x3/uL (130-400); Red Blood Cell (RBC) Count 3.80 mill/uL (4.20-5.40); White Blood Cell (WBC) Count 6.58 10x3/uL (4.8-10.8)
[2025-03-27 21:48] LABS: ALT (SGPT) 16 U/L (Less than 34); AST (SGOT) 19 U/L (11-34); Albumin 4.0 g/dL (3.1-4.5); Alkaline Phosphatase 86 U/L (40-110); Anion Gap 17 mmol/L (10-20); BUN (Urea Nitrogen) 13 mg/dL (9.8-20.1); Bilirubin, Total 0.3 mg/dL (0.3-1.2); CK (CPK) 313 U/L (29-168); Calc. Creatinine Clearance 0 mL/min (70-130); Calcium 9.3 mg/dL (7.8-10.44); Carbon Dioxide 20 mmol/L (22-29); Chloride 108 mmol/L (98-107); Globulin 3.7 g/dL (2.4-3.5); Glucose 100 mg/dL (70-105); Potassium 3.7 mmol/L (3.5-5.1); Sodium 141 mmol/L (136-145)
[2025-03-27] MEDS ORDERED: levETIRAcetam 500 MG (5 mL) VIAL ONE (22:04)
[2025-03-27] MEDS ORDERED: levETIRAcetam 500 MG TAB ONE (22:11)
== END 2025-03-27 23:58 | disposition home or self-care (01) ==
LOC: ERS 20:06 → EEVIPCON 20:06 → ERS 23:58
DX: Z04.71 Encounter for examination and observation following alleged adult physical abuse (principal); R56.9 Unspecified convulsions; E78.5 Hyperlipidemia, unspecified; I10 Essential (primary) hypertension; E11.42 Type 2 diabetes mellitus with diabetic polyneuropathy; J44.9 Chronic obstructive pulmonary disease, unspecified; F17.210 Nicotine dependence, cigarettes, uncomplicated; Z86.73 Personal history of transient ischemic attack (TIA), and cerebral infarction without residual deficits; Z79.84 Long term (current) use of oral hypoglycemic drugs; Z79.51 Long term (current) use of inhaled steroids; Z79.82 Long term (current) use of aspirin; Z79.899 Other long term (current) drug therapy
CPT/HCPCS: 36415; 70491; 80053; 82550; 85025; 96374; J1885; J1953

== ENCOUNTER 2025-04-07 10:09 | Observation (INO) | payer MEDICAID ==
[2025-04-07 11:55] LABS: #Basophils Less than 0.03 10x3/uL (0.0-0.2); #Eosinophils 0.07 10x3/uL (0.0-0.7); #Monocytes 0.57 10x3/uL (0.11-0.59); #Neutrophils 4.31 10x3/uL (1.40-6.50); %Basophils 0.3 % (0.0-1.0); %Eosinophils 1.1 % (0.0-10.0); %Lymphocytes 24.2 % (21.0-51.0); %Monocytes 8.7 % (0.0-10.0); %Neutrophils 65.4 % (42.0-75.0); Hematocrit 39.8 % (36.0-47.0); Hemoglobin 13.2 g/dL (12.0-16.0); Mean Corpuscular Hemoglobin 31.1 pg (27.0-31.0); Mean Corpuscular Volume 93.6 fL (78.0-98.0); Platelet Count 344 10x3/uL (130-400); Red Blood Cell (RBC) Count 4.25 mill/uL (4.20-5.40); White Blood Cell (WBC) Count 6.58 10x3/uL (4.8-10.8)
[2025-04-07 12:14] LABS: Troponin I Less than 0.010 ng/mL (< 0.028)
[2025-04-07 12:16] LABS: Magnesium 1.9 mg/dL (1.6-2.6)
[2025-04-07 12:17] LABS: Acetaminophen Less than 10 mcg/mL (Less than 10); Salicylate Less than 8.0 mg/dL (Less than 8.0)
[2025-04-07 12:26] LABS: Chloride 110 mmol/L (98-107); Potassium 3.4 mmol/L (3.5-5.1); Sodium 147 mmol/L (136-145)
[2025-04-07 12:28] LABS: ALT (SGPT) 13 U/L (Less than 34); AST (SGOT) 17 U/L (11-34); Albumin 4.1 g/dL (3.1-4.5); Alkaline Phosphatase 87 U/L (40-110); Anion Gap 13 mmol/L (10-20); BUN (Urea Nitrogen) 16 mg/dL (9.8-20.1); Bilirubin, Total 0.3 mg/dL (0.3-1.2); CK (CPK) 146 U/L (29-168); Calc. Creatinine Clearance 0 mL/min (70-130); Calcium 9.4 mg/dL (7.8-10.44); Carbon Dioxide 25 mmol/L (22-29); Globulin 3.7 g/dL (2.4-3.5); Glucose 73 mg/dL (70-105)
[2025-04-07 14:25] LABS: Actual Bicarbonate (HCO3v) 22.7 mEq/L (22-28); Analyzer IN Cardio ER; Base Excess -2.6 mEq/L (-2.0 to +3.0); Calcium, Ionized (venous) 1.17 mmol/L (1.16-1.32); Chloride (VBG) 105 mmol/L (98-106); Hematocrit-VBG 41 % (36.0-47.0); Hemoglobin (Hb) 13.9 g/dL (11.7-16.0); Potassium (VBG) 3.45 mmol/L (3.70-5.30); Sodium 143 mmol/L (133-146)
[2025-04-07 14:42] LABS: INR-International Normal Ratio 1.0; Prothrombin Time 13.2 sec (12.0-14.7)
[2025-04-07 14:43] LABS: PTT 27.5 sec (22.9-36.1)
[2025-04-07] MEDS ORDERED: Aspirin Chewable 81 MG TAB ONE (15:46)
[2025-04-07 16:37] LABS: Cocaine Metabolite Screen PRELIM POSITIVE (Negative); THC/Cannabinoid Screen Negative (Negative); Tricyclic Screen Negative (Negative)
[2025-04-07 16:42] LABS: CAUTI Indications for Culture Dysuria,urgency,freq; Glucose, Urine (Dipstick) Normal (Negative); Leukocyte Negative Leu/uL (Negative); Protein, Urine (Dipstick) Negative (Neg-Trace); RBC/HPF 0-3 HPF (0-3); Specific Gravity, Urine 1.020 (1.002-1.036); WBC/HPF 0-3 HPF (0-3)
[2025-04-07 16:43] LABS: Bacteria/HPF 1+ HPF (None Seen)
[2025-04-07 16:44] LABS: Urine Culture Reflex No No
[2025-04-07] MEDS ORDERED: levETIRAcetam 500 MG (5 mL) VIAL ONE (17:11)
[2025-04-07] MEDS ORDERED: Dextrose 50% Abboject 50 ML SYRINGE SLOW IVP PRN (19:04)
[2025-04-07] MEDS ORDERED: Ondansetron PF 4 MG/2 ML Vial IVP PRN (19:04)
[2025-04-07] MEDS ORDERED: Senokot S 8.6-50 MG TAB PO PRN (19:04)
[2025-04-07] MEDS ORDERED: Glucagon 1 MG/ML KIT IM PRN (19:04)
[2025-04-07 20:10] LABS: Troponin I Less than 0.010 ng/mL (< 0.028)
[2025-04-07 20:13] LABS: Magnesium 1.7 mg/dL (1.6-2.6)
[2025-04-07] MEDS: levETIRAcetam 500 MG TAB PO SCH (23:02)
[2025-04-07] MEDS: Magnesium 2 GM/50 ML(in water) 2 GM in Premix 1 BAG IVPB SCH (23:02)
[2025-04-07 23:57] VITALS: BMI 30.4
[2025-04-08 00:01] LABS: Anion Gap 12 mmol/L (10-20); BUN (Urea Nitrogen) 10 mg/dL (9.8-20.1); Calc. Creatinine Clearance 133 mL/min (70-130); Calcium 8.6 mg/dL (7.8-10.44); Carbon Dioxide 26 mmol/L (22-29); Chloride 107 mmol/L (98-107); Glucose 100 mg/dL (70-105); Potassium 3.4 mmol/L (3.5-5.1); Sodium 142 mmol/L (136-145)
[2025-04-08 00:07] LABS: Troponin I Less than 0.010 ng/mL (< 0.028)
[2025-04-08 04:21] LABS: #Basophils 0.03 10x3/uL (0.0-0.2); #Eosinophils 0.11 10x3/uL (0.0-0.7); #Monocytes 0.43 10x3/uL (0.11-0.59); #Neutrophils 2.85 10x3/uL (1.40-6.50); %Basophils 0.6 % (0.0-1.0); %Eosinophils 2.2 % (0.0-10.0); %Lymphocytes 32.4 % (21.0-51.0); %Monocytes 8.4 % (0.0-10.0); %Neutrophils 56.0 % (42.0-75.0); Hematocrit 40.1 % (36.0-47.0); Hemoglobin 13.1 g/dL (12.0-16.0); Mean Corpuscular Hemoglobin 30.5 pg (27.0-31.0); Mean Corpuscular Volume 93.3 fL (78.0-98.0); Platelet Count 130 10x3/uL (130-400); Red Blood Cell (RBC) Count 4.30 mill/uL (4.20-5.40); White Blood Cell (WBC) Count 5.09 10x3/uL (4.8-10.8)
[2025-04-08] MEDS: Aspirin 81 mg Enteric Coated Tablet PO SCH (09:03)
[2025-04-08] MEDS: Enoxaparin 40 MG (0.4 mL) SYRINGE SC SCH (09:03)
[2025-04-08] MEDS: Pantoprazole 40 MG DR.TAB PO SCH (09:04)
[2025-04-08 10:05] LABS: Anion Gap 12 mmol/L (10-20); BUN (Urea Nitrogen) 8 mg/dL (9.8-20.1); Calc. Creatinine Clearance 138 mL/min (70-130); Calcium 8.9 mg/dL (7.8-10.44); Carbon Dioxide 24 mmol/L (22-29); Chloride 109 mmol/L (98-107); Glucose 151 mg/dL (70-105); Potassium 4.0 mmol/L (3.5-5.1); Sodium 141 mmol/L (136-145)
[2025-04-08] MEDS: Acetaminophen 325 MG TAB PO PRN (10:27)
[2025-04-08] MEDS: Cyclobenzaprine 10 MG TAB PO PRN (12:07)
[2025-04-08 12:26] VITALS: BP 129/79; TEMP 97.9
== END 2025-04-08 14:30 | disposition home or self-care (01) ==
LOC: ERS 10:09 → 2SE 18:08
PROVIDERS: ADMIT Internal Medicine; ATTEND Internal Medicine
DX: R29.818 Other symptoms and signs involving the nervous system (principal); R53.1 Weakness; R29.810 Facial weakness; E87.21 Acute metabolic acidosis; E87.1 Hypo-osmolality and hyponatremia; E83.42 Hypomagnesemia; E87.6 Hypokalemia; G40.909 Epilepsy, unspecified, not intractable, without status epilepticus; E11.9 Type 2 diabetes mellitus without complications; F41.9 Anxiety disorder, unspecified; J44.9 Chronic obstructive pulmonary disease, unspecified; M06.9 Rheumatoid arthritis, unspecified; K21.9 Gastro-esophageal reflux disease without esophagitis; E78.5 Hyperlipidemia, unspecified; Z86.73 Personal history of transient ischemic attack (TIA), and cerebral infarction without residual deficits; Z88.8 Allergy status to other drugs, medicaments and biological substances; Z79.84 Long term (current) use of oral hypoglycemic drugs; Z79.82 Long term (current) use of aspirin; Z79.899 Other long term (current) drug therapy
CPT/HCPCS: 36415; 36416; 70450; 70496; 70498; 71045; 80048; 80053; 80177; 80306; 80307; 81001; 82140; 82550; 82805; 83735; 84146; 84443; 84484; 85025; 85610; 85730; 93005; 94760; 95813; 96365; 96372; 96375; G0378; J1650; J1953; J3475; Q9967

== ENCOUNTER 2025-05-03 08:12 | Inpatient (IN) | payer MEDICAID ==
[2025-05-03] MEDS ORDERED: Etomidate 40 MG (20 mL) VIAL ONE (08:17)
[2025-05-03] MEDS ORDERED: Rocuronium Bromide 10 MG/ML (10ML VIAL) ONE (08:17)
[2025-05-03 08:42] LABS: Actual Bicarbonate (HCO3a) 22.5 mEq/L (22-28); Analyzer IN Cardio ER; Base Excess (BEa) -0.1 mEq/L (-2.0 to +3.0); CO2 Tension 30.6 mmHg (35.0-45.0); Calcium, Ionized (arterial) 1.13 mmol/L (1.12-1.30); Hematocrit-ABG 36 % (36.0-47.0); Hemoglobin (Hb) 12.4 g/dL (12.0-16.0); O2 Tension (PaO2), arterial 302.9 mmHg (80.0-100.0); Potassium - ABG Lab 3.31 mmol/L (3.70-5.30); pH, Arterial 7.484 (7.35-7.45)
[2025-05-03 08:49] LABS: Bacteria/HPF None Seen HPF (None Seen); CAUTI Indications for Culture Dysuria,urgency,freq; Glucose, Urine (Dipstick) Normal (Negative); Leukocyte Negative Leu/uL (Negative); Protein, Urine (Dipstick) 30 mg/dL (Neg-Trace); RBC/HPF 0-3 HPF (0-3); Specific Gravity, Urine 1.030 (1.002-1.036); WBC/HPF 0-3 HPF (0-3)
[2025-05-03 08:54] LABS: Urine Culture Reflex No No
[2025-05-03 09:08] LABS: #Basophils 0.04 10x3/uL (0.0-0.2); #Eosinophils 0.10 10x3/uL (0.0-0.7); #Monocytes 0.58 10x3/uL (0.11-0.59); #Neutrophils 2.36 10x3/uL (1.40-6.50); %Basophils 0.7 % (0.0-1.0); %Eosinophils 1.9 % (0.0-10.0); %Lymphocytes 42.0 % (21.0-51.0); %Monocytes 10.8 % (0.0-10.0); %Neutrophils 44.0 % (42.0-75.0); Hematocrit 36.5 % (36.0-47.0); Hemoglobin 12.0 g/dL (12.0-16.0); Mean Corpuscular Hemoglobin 30.5 pg (27.0-31.0); Mean Corpuscular Volume 92.6 fL (78.0-98.0); Platelet Count 238 10x3/uL (130-400); Red Blood Cell (RBC) Count 3.94 mill/uL (4.20-5.40); White Blood Cell (WBC) Count 5.36 10x3/uL (4.8-10.8)
[2025-05-03 09:12] LABS: Cocaine Metabolite Screen PRELIM POSITIVE (Negative); THC/Cannabinoid Screen PRELIM POSITIVE (Negative); Tricyclic Screen Negative (Negative)
[2025-05-03 09:22] LABS: ALT (SGPT) 10 U/L (Less than 34); AST (SGOT) 21 U/L (11-34); Acetaminophen Less than 10 mcg/mL (Less than 10); Albumin 4.0 g/dL (3.1-4.5); Alkaline Phosphatase 91 U/L (40-110); Anion Gap 16 mmol/L (10-20); BUN (Urea Nitrogen) 13 mg/dL (9.8-20.1); Bilirubin, Total 0.3 mg/dL (0.3-1.2); CK (CPK) 272 U/L (29-168); Calc. Creatinine Clearance 0 mL/min (70-130); Calcium 9.3 mg/dL (7.8-10.44); Carbon Dioxide 21 mmol/L (22-29); Chloride 109 mmol/L (98-107); Globulin 3.6 g/dL (2.4-3.5); Glucose 118 mg/dL (70-105); Lipase 56 U/L (8-78); Potassium 3.5 mmol/L (3.5-5.1); Salicylate Less than 8.0 mg/dL (Less than 8.0); Sodium 142 mmol/L (136-145)
[2025-05-03] MEDS ORDERED: Magnesium 2 GM/50 ML BAG (IN WATER) ONE (09:56)
[2025-05-03] MEDS ORDERED: Ondansetron PF 4 MG/2 ML Vial IVP PRN (10:49)
[2025-05-03] MEDS ORDERED: Electrolyte Replacement Protocol 1 EACH IVPB ONE (10:49)
[2025-05-03] MEDS ORDERED: Glucagon 1 MG/ML KIT IM PRN (10:59)
[2025-05-03] MEDS ORDERED: Dextrose 50% Abboject 50 ML SYRINGE SLOW IVP PRN (10:59)
[2025-05-03] MEDS: Etomidate 40 MG (20 mL) VIAL IVP SCH (13:31)
[2025-05-03] MEDS: Magnesium 2 GM/50 ML(in water) 2 GM in Premix 1 BAG IVPB SCH (13:32)
[2025-05-03] MEDS: Rocuronium Bromide 10 MG/ML (10ML VIAL) IVP SCH (13:32)
[2025-05-03] MEDS: Potassium Chloride 20 MEQ in Premix 1 BAG IVPB SCH (13:32)
[2025-05-03] MEDS: Famotidine/PF 20 mg/2ml Vial SLOW IVP SCH ×2 (13:33→20:18)
[2025-05-03] MEDS: Aspirin Chewable 81 MG TAB PER TUBE SCH (13:33)
[2025-05-03] MEDS: Gabapentin 400 MG CAP PER TUBE SCH (14:42)
[2025-05-03 18:09] VITALS: BMI 28.3
[2025-05-03] MEDS: Enoxaparin 80 MG (0.8 mL) SYRINGE SC SCH ×2 (19:22→20:18)
[2025-05-03] MEDS: OLANZapine 5 MG TAB PER TUBE SCH (20:20)
[2025-05-03] MEDS: levETIRAcetam 500 MG (5 mL) VIAL SLOW IVP SCH (20:20)
[2025-05-04 06:09] LABS: #Basophils Less than 0.03 10x3/uL (0.0-0.2); #Eosinophils 0.09 10x3/uL (0.0-0.7); #Monocytes 0.62 10x3/uL (0.11-0.59); #Neutrophils 5.96 10x3/uL (1.40-6.50); %Basophils 0.3 % (0.0-1.0); %Eosinophils 1.1 % (0.0-10.0); %Lymphocytes 15.6 % (21.0-51.0); %Monocytes 7.8 % (0.0-10.0); %Neutrophils 74.9 % (42.0-75.0); Hematocrit 34.4 % (36.0-47.0); Hemoglobin 11.4 g/dL (12.0-16.0); Mean Corpuscular Hemoglobin 30.7 pg (27.0-31.0); Mean Corpuscular Volume 92.7 fL (78.0-98.0); Platelet Count 334 10x3/uL (130-400); Red Blood Cell (RBC) Count 3.71 mill/uL (4.20-5.40); White Blood Cell (WBC) Count 7.95 10x3/uL (4.8-10.8)
[2025-05-04 06:33] LABS: ALT (SGPT) Less than 7 U/L (Less than 34); AST (SGOT) 17 U/L (11-34); Albumin 3.2 g/dL (3.1-4.5); Alkaline Phosphatase 81 U/L (40-110); Anion Gap 9 mmol/L (10-20); BUN (Urea Nitrogen) 8 mg/dL (9.8-20.1); Bilirubin, Total 0.4 mg/dL (0.3-1.2); Calc. Creatinine Clearance 115 mL/min (70-130); Calcium 8.7 mg/dL (7.8-10.44); Carbon Dioxide 24 mmol/L (22-29); Chloride 115 mmol/L (98-107); Globulin 3.0 g/dL (2.4-3.5); Glucose 104 mg/dL (70-105); Potassium 3.6 mmol/L (3.5-5.1); Sodium 144 mmol/L (136-145)
[2025-05-04] MEDS ORDERED: Enoxaparin 40 MG (0.4 mL) SYRINGE SC SCH (09:00)
[2025-05-04] MEDS: Enoxaparin 80 MG (0.8 mL) SYRINGE SC SCH (09:16)
[2025-05-04] MEDS: Aspirin Chewable 81 MG TAB PER TUBE SCH (09:17)
[2025-05-04] MEDS: cefTRIAXone\\ROCEPHIN 2 GM in Sodium Chloride 0.9% 100 ML IVPB SCH (13:47)
[2025-05-05] MEDS: hydrALAZINE 20 MG/ML VIAL SLOW IVP PRN (01:14)
[2025-05-05 06:04] LABS: #Basophils Less than 0.03 10x3/uL (0.0-0.2); #Eosinophils Less than 0.03 10x3/uL (0.0-0.7); #Monocytes 0.22 10x3/uL (0.11-0.59); #Neutrophils 11.29 10x3/uL (1.40-6.50); %Basophils 0.2 % (0.0-1.0); %Eosinophils 0.0 % (0.0-10.0); %Lymphocytes 6.3 % (21.0-51.0); %Monocytes 1.8 % (0.0-10.0); %Neutrophils 91.1 % (42.0-75.0); Hematocrit 36.3 % (36.0-47.0); Hemoglobin 12.0 g/dL (12.0-16.0); Mean Corpuscular Hemoglobin 30.8 pg (27.0-31.0); Mean Corpuscular Volume 93.1 fL (78.0-98.0); Platelet Count 340 10x3/uL (130-400); Red Blood Cell (RBC) Count 3.90 mill/uL (4.20-5.40); White Blood Cell (WBC) Count 12.38 10x3/uL (4.8-10.8)
[2025-05-05 06:24] LABS: ALT (SGPT) Less than 7 U/L (Less than 34); AST (SGOT) 12 U/L (11-34); Albumin 3.0 g/dL (3.1-4.5); Alkaline Phosphatase 78 U/L (40-110); Anion Gap 12 mmol/L (10-20); BUN (Urea Nitrogen) 9 mg/dL (9.8-20.1); Bilirubin, Total 0.3 mg/dL (0.3-1.2); Calc. Creatinine Clearance 135 mL/min (70-130); Calcium 8.6 mg/dL (7.8-10.44); Carbon Dioxide 21 mmol/L (22-29); Chloride 109 mmol/L (98-107); Globulin 3.7 g/dL (2.4-3.5); Glucose 158 mg/dL (70-105); Potassium 3.8 mmol/L (3.5-5.1); Sodium 138 mmol/L (136-145)
[2025-05-06 04:55] LABS: #Basophils Less than 0.03 10x3/uL (0.0-0.2); #Eosinophils Less than 0.03 10x3/uL (0.0-0.7); #Monocytes 0.34 10x3/uL (0.11-0.59); #Neutrophils 8.21 10x3/uL (1.40-6.50); %Basophils 0.1 % (0.0-1.0); %Eosinophils 0.0 % (0.0-10.0); %Lymphocytes 7.7 % (21.0-51.0); %Monocytes 3.6 % (0.0-10.0); %Neutrophils 86.6 % (42.0-75.0); Hematocrit 36.0 % (36.0-47.0); Hemoglobin 12.0 g/dL (12.0-16.0); Mean Corpuscular Hemoglobin 30.8 pg (27.0-31.0); Mean Corpuscular Volume 92.5 fL (78.0-98.0); Platelet Count 350 10x3/uL (130-400); Red Blood Cell (RBC) Count 3.89 mill/uL (4.20-5.40); White Blood Cell (WBC) Count 9.48 10x3/uL (4.8-10.8)
[2025-05-06 06:14] LABS: ALT (SGPT) Less than 7 U/L (Less than 34); AST (SGOT) 9 U/L (11-34); Albumin 2.8 g/dL (3.1-4.5); Alkaline Phosphatase 67 U/L (40-110); Anion Gap 14 mmol/L (10-20); BUN (Urea Nitrogen) 14 mg/dL (9.8-20.1); Bilirubin, Total 0.2 mg/dL (0.3-1.2); Calc. Creatinine Clearance 141 mL/min (70-130); Calcium 8.7 mg/dL (7.8-10.44); Carbon Dioxide 20 mmol/L (22-29); Chloride 113 mmol/L (98-107); Globulin 3.5 g/dL (2.4-3.5); Glucose 196 mg/dL (70-105); Potassium 3.8 mmol/L (3.5-5.1); Sodium 143 mmol/L (136-145)
[2025-05-07 02:56] LABS: #Basophils Less than 0.03 10x3/uL (0.0-0.2); #Eosinophils Less than 0.03 10x3/uL (0.0-0.7); #Monocytes 0.88 10x3/uL (0.11-0.59); #Neutrophils 11.67 10x3/uL (1.40-6.50); %Basophils 0.1 % (0.0-1.0); %Eosinophils 0.1 % (0.0-10.0); %Lymphocytes 5.4 % (21.0-51.0); %Monocytes 6.5 % (0.0-10.0); %Neutrophils 86.9 % (42.0-75.0); Hematocrit 32.8 % (36.0-47.0); Hemoglobin 11.0 g/dL (12.0-16.0); Mean Corpuscular Hemoglobin 31.1 pg (27.0-31.0); Mean Corpuscular Volume 92.7 fL (78.0-98.0); Platelet Count 342 10x3/uL (130-400); Red Blood Cell (RBC) Count 3.54 mill/uL (4.20-5.40); White Blood Cell (WBC) Count 13.45 10x3/uL (4.8-10.8)
[2025-05-07 04:34] LABS: ALT (SGPT) 7 U/L (Less than 34); AST (SGOT) 14 U/L (11-34); Albumin 2.9 g/dL (3.1-4.5); Alkaline Phosphatase 63 U/L (40-110); Anion Gap 13 mmol/L (10-20); BUN (Urea Nitrogen) 23 mg/dL (9.8-20.1); Bilirubin, Total 0.2 mg/dL (0.3-1.2); Calc. Creatinine Clearance 132 mL/min (70-130); Calcium 8.5 mg/dL (7.8-10.44); Carbon Dioxide 20 mmol/L (22-29); Chloride 115 mmol/L (98-107); Globulin 3.1 g/dL (2.4-3.5); Glucose 116 mg/dL (70-105); Potassium 3.6 mmol/L (3.5-5.1); Sodium 144 mmol/L (136-145)
[2025-05-07] MEDS: Famotidine 20 MG TAB PO SCH (23:20)
[2025-05-08 04:52] LABS: #Basophils Less than 0.03 10x3/uL (0.0-0.2); #Eosinophils Less than 0.03 10x3/uL (0.0-0.7); #Monocytes 0.41 10x3/uL (0.11-0.59); #Neutrophils 5.18 10x3/uL (1.40-6.50); %Basophils 0.2 % (0.0-1.0); %Eosinophils 0.0 % (0.0-10.0); %Lymphocytes 13.4 % (21.0-51.0); %Monocytes 6.2 % (0.0-10.0); %Neutrophils 78.5 % (42.0-75.0); Hematocrit 34.9 % (36.0-47.0); Hemoglobin 10.9 g/dL (12.0-16.0); Mean Corpuscular Hemoglobin 30.6 pg (27.0-31.0); Mean Corpuscular Volume 98.0 fL (78.0-98.0); Platelet Count 298 10x3/uL (130-400); Red Blood Cell (RBC) Count 3.56 mill/uL (4.20-5.40); White Blood Cell (WBC) Count 6.59 10x3/uL (4.8-10.8)
[2025-05-08 05:27] LABS: ALT (SGPT) 39 U/L (Less than 34); AST (SGOT) 49 U/L (11-34); Albumin 3.0 g/dL (3.1-4.5); Alkaline Phosphatase 82 U/L (40-110); Anion Gap 13 mmol/L (10-20); BUN (Urea Nitrogen) 17 mg/dL (9.8-20.1); Bilirubin, Total 0.1 mg/dL (0.3-1.2); Calc. Creatinine Clearance 137 mL/min (70-130); Calcium 8.3 mg/dL (7.8-10.44); Carbon Dioxide 21 mmol/L (22-29); Chloride 113 mmol/L (98-107); Globulin 2.9 g/dL (2.4-3.5); Glucose 180 mg/dL (70-105); Potassium 4.3 mmol/L (3.5-5.1); Sodium 143 mmol/L (136-145)
[2025-05-08] MEDS: Acetaminophen 325 MG TAB PO PRN (11:16)
[2025-05-08 18:40] VITALS: BMI 27.3
[2025-05-08] MEDS: Lisinopril 10 MG TAB PO SCH (20:31)
[2025-05-09 09:16] LABS: Anion Gap 12 mmol/L (10-20); BUN (Urea Nitrogen) 13 mg/dL (9.8-20.1); Calc. Creatinine Clearance 138 mL/min (70-130); Calcium 8.5 mg/dL (7.8-10.44); Carbon Dioxide 25 mmol/L (22-29); Chloride 111 mmol/L (98-107); Glucose 166 mg/dL (70-105); Potassium 3.5 mmol/L (3.5-5.1); Sodium 144 mmol/L (136-145)
[2025-05-09 17:10] VITALS: BP 143/86; TEMP 98.4
== END 2025-05-09 18:57 | disposition home or self-care (01) | DRG 917 ==
LOC: ERS 08:12 → ERHOLD 10:44 → CCU 12:24 → 2NO 05-07 19:47
PROVIDERS: ADMIT Internal Medicine; ATTEND Internal Medicine
PROC: 4A033R1 Measurement of Arterial Saturation, Peripheral, Percutaneous Approach (ICD-10-PCS; principal; 2025-05-03)
PROC: 5A1945Z Respiratory Ventilation, 24-96 Consecutive Hours (ICD-10-PCS; 2025-05-03)
PROC: 0T9B70Z Drainage of Bladder with Drainage Device, Via Natural or Artificial Opening (ICD-10-PCS; 2025-05-03)
PROC: 0BH17EZ Insertion of Endotracheal Airway into Trachea, Via Natural or Artificial Opening (ICD-10-PCS; 2025-05-03)
PROC: 06HY33Z Insertion of Infusion Device into Lower Vein, Percutaneous Approach (ICD-10-PCS; 2025-05-03)
PROC: 3E03329 Introduction of Other Anti-infective into Peripheral Vein, Percutaneous Approach (ICD-10-PCS; 2025-05-04)
PROC: 0D9670Z Drainage of Stomach with Drainage Device, Via Natural or Artificial Opening (ICD-10-PCS; 2025-05-05)
PROC: 0DH67UZ Insertion of Feeding Device into Stomach, Via Natural or Artificial Opening (ICD-10-PCS; 2025-05-06)
PROC: 3E0G76Z Introduction of Nutritional Substance into Upper GI, Via Natural or Artificial Opening (ICD-10-PCS; 2025-05-06)
PROC: 05HY33Z Insertion of Infusion Device into Upper Vein, Percutaneous Approach (ICD-10-PCS; 2025-05-06)
DX: T43.621A Poisoning by amphetamines, accidental (unintentional), initial encounter (principal); G93.41 Metabolic encephalopathy; J96.01 Acute respiratory failure with hypoxia; I21.4 Non-ST elevation (NSTEMI) myocardial infarction; I50.23 Acute on chronic systolic (congestive) heart failure; E87.29 Other acidosis; K21.9 Gastro-esophageal reflux disease without esophagitis; E78.5 Hyperlipidemia, unspecified; E11.42 Type 2 diabetes mellitus with diabetic polyneuropathy; E87.8 Other disorders of electrolyte and fluid balance, not elsewhere classified; G40.909 Epilepsy, unspecified, not intractable, without status epilepticus; I11.0 Hypertensive heart disease with heart failure; F41.9 Anxiety disorder, unspecified; F31.9 Bipolar disorder, unspecified; F10.10 Alcohol abuse, uncomplicated; F20.9 Schizophrenia, unspecified; F15.10 Other stimulant abuse, uncomplicated; F17.210 Nicotine dependence, cigarettes, uncomplicated; J44.9 Chronic obstructive pulmonary disease, unspecified; Z91.51 Personal history of suicidal behavior; Z86.73 Personal history of transient ischemic attack (TIA), and cerebral infarction without residual deficits; Z88.8 Allergy status to other drugs, medicaments and biological substances; Z79.51 Long term (current) use of inhaled steroids; Z79.82 Long term (current) use of aspirin; Z79.84 Long term (current) use of oral hypoglycemic drugs; M06.9 Rheumatoid arthritis, unspecified; Z98.891 History of uterine scar from previous surgery; Z78.1 Physical restraint status; F14.10 Cocaine abuse, uncomplicated; F12.10 Cannabis abuse, uncomplicated; R45.1 Restlessness and agitation
CPT/HCPCS: 31500; 36415; 36416; 36556; 51702; 70450; 71045; 78452; 80048; 80053; 80306; 80307; 81001; 82140; 82550; 82805; 83690; 84443; 84484; 85025; 93005; 93017; 93306; 94002; 94003; 96365; 96374; 96375; 99292; A9502; J0360; J0696; J1100; J1650; J1815; J1953; J2060; J2704; J2785; J2919; J3411; J3475; J3480; J7120

== ENCOUNTER 2025-06-09 20:49 | Emergency (ER) | payer MEDICAID ==
[2025-06-09 21:26] LABS: #Basophils 0.03 10x3/uL (0.0-0.2); #Eosinophils 0.08 10x3/uL (0.0-0.7); #Monocytes 0.55 10x3/uL (0.11-0.59); #Neutrophils 2.68 10x3/uL (1.40-6.50); %Basophils 0.6 % (0.0-1.0); %Eosinophils 1.5 % (0.0-10.0); %Lymphocytes 35.5 % (21.0-51.0); %Monocytes 10.6 % (0.0-10.0); %Neutrophils 51.4 % (42.0-75.0); Hematocrit 36.8 % (36.0-47.0); Hemoglobin 11.9 g/dL (12.0-16.0); Mean Corpuscular Hemoglobin 31.2 pg (27.0-31.0); Mean Corpuscular Volume 96.3 fL (78.0-98.0); Platelet Count 377 10x3/uL (130-400); Red Blood Cell (RBC) Count 3.82 mill/uL (4.20-5.40); White Blood Cell (WBC) Count 5.21 10x3/uL (4.8-10.8)
[2025-06-09 21:30] LABS: ALT (SGPT) Less than 7 U/L (Less than 34); AST (SGOT) 13 U/L (11-34); Albumin 3.6 g/dL (3.1-4.5); Alkaline Phosphatase 81 U/L (40-110); Anion Gap 14 mmol/L (10-20); BUN (Urea Nitrogen) 15 mg/dL (9.8-20.1); Bilirubin, Total 0.2 mg/dL (0.3-1.2); Calc. Creatinine Clearance 0 mL/min (70-130); Calcium 9.0 mg/dL (7.8-10.44); Carbon Dioxide 25 mmol/L (22-29); Chloride 111 mmol/L (98-107); Globulin 3.1 g/dL (2.4-3.5); Glucose 138 mg/dL (70-105); Potassium 3.7 mmol/L (3.5-5.1); Sodium 146 mmol/L (136-145)
== END 2025-06-09 22:35 | disposition home or self-care (01) ==
LOC: ERS 20:49
DX: R07.89 Other chest pain (principal); E11.42 Type 2 diabetes mellitus with diabetic polyneuropathy; I10 Essential (primary) hypertension; J44.9 Chronic obstructive pulmonary disease, unspecified; F17.210 Nicotine dependence, cigarettes, uncomplicated; Z79.51 Long term (current) use of inhaled steroids; Z79.82 Long term (current) use of aspirin; Z79.84 Long term (current) use of oral hypoglycemic drugs; Z79.899 Other long term (current) drug therapy
CPT/HCPCS: 71045; 80053; 84484; 85025; 93005